=== PATIENT | female | born 1950 | race Hispanic/Latino ===

== ENCOUNTER → 2017-08-01 | Outpatient (CLI) | payer MEDICARE | END | disposition home or self-care (01) | LOC: OIH 14:18 | PROVIDERS: ATTEND Internal Medicine | DX: M16.0 Bilateral primary osteoarthritis of hip (principal); M47.26 Other spondylosis with radiculopathy, lumbar region; M85.89 Other specified disorders of bone density and structure, multiple sites; R07.81 Pleurodynia | CPT/HCPCS: 71100; 72110; 73521 ==

== ENCOUNTER → 2017-08-07 | Outpatient (CLI) | payer MEDICARE | END | disposition home or self-care (01) | LOC: RAH 13:48 | PROVIDERS: ATTEND Internal Medicine | DX: R42 Dizziness and giddiness (principal) | CPT/HCPCS: 70450 ==

== ENCOUNTER → 2017-08-24 | Outpatient (CLI) | payer MEDICARE | END | disposition home or self-care (01) | LOC: SHCH 14:32 | PROVIDERS: ATTEND Internal Medicine Cardiovascular Disease | DX: I34.0 Nonrheumatic mitral (valve) insufficiency (principal); I10 Essential (primary) hypertension; I25.5 Ischemic cardiomyopathy; I31.3 Pericardial effusion (noninflammatory); Z95.0 Presence of cardiac pacemaker | CPT/HCPCS: 93306 ==

== ENCOUNTER → 2017-08-31 | Outpatient (CLI) | payer MEDICARE | END | disposition home or self-care (01) | LOC: RAH 09:25 | PROVIDERS: ATTEND Internal Medicine | DX: N27.1 Small kidney, bilateral (principal); R16.1 Splenomegaly, not elsewhere classified | CPT/HCPCS: 76700 ==

== ENCOUNTER → 2018-01-09 | Outpatient (CLI) | payer MEDICARE | END | disposition home or self-care (01) | LOC: RAH 13:54 | PROVIDERS: ATTEND Anesthesiology | DX: M85.88 Other specified disorders of bone density and structure, other site (principal); M43.26 Fusion of spine, lumbar region; I70.0 Atherosclerosis of aorta; M47.897 Other spondylosis, lumbosacral region | CPT/HCPCS: 72100; 72131 ==

== ENCOUNTER 2018-01-31 12:35 | Inpatient (IN) | payer MEDICARE ==
[~2018-01-31] VITALS: Ht 154.9 cm; Wt 53.9 kg
[2018-01-31] MEDS ORDERED: SODIUM CHLORIDE 0.9% 1000ML 1,000 ML IV ONE (13:52)
[2018-01-31] MEDS ORDERED: ONDANSETRON HCL 4 MG/2 ML VIAL ONE (13:52)
[2018-01-31] MEDS ORDERED: MORPHINE SULFATE 4 MG/1ML SYG ONE (13:53)
[2018-01-31] MEDS ORDERED: CEFTRIAXONE SODIUM 1 GM ONE (13:53)
[2018-01-31] MEDS ORDERED: ACETAMINOPHEN 325 MG TAB ONE (13:53)
[2018-01-31 14:02] LABS: BASOPHILS % (AUTO) 0.2 % (0.0-5.0); EOSINOPHILS % (AUTO) 0.7 % (0.0-8.0); HEMATOCRIT 40.6 % (36-48); LYMPHOCYTES % (AUTO) 4.1 % (21.0-51.0); MEAN CORPUSCULAR HEMOGLOBIN 28.4 pg (27.0-33.0); MEAN CORPUSCULAR HGB CONC 32.6 g/dL (32.0-36.0); MEAN CORPUSCULAR VOLUME 87.3 fL (79-99); MONOCYTES % (AUTO) 3.7 % (3.0-13.0); NEUTROPHILS % (AUTO) 91.3 % (40.0-77.0); PLATELET COUNT (AUTO) 119 K/uL (130-400); RED BLOOD CELL COUNT(AUTO) 4.65 MIL/uL (4.00-5.50); RED CELL DISTRIBUTION WIDTH 16.8 % (11.0-15.5); WHITE BLOOD COUNT (AUTO) 9.8 K/uL (4.8-10.8)
[2018-01-31 14:09] LABS: CREATININE 4.8 mg/dL (0.5-1.5); POTASSIUM 4.3 mmol/L (3.5-5.1)
[2018-01-31 14:14] LABS: ALBUMIN 3.8 g/dL (3.5-5.0); BILIRUBIN,TOTAL 1.1 mg/dL (0.2-1.0); TOTAL PROTEIN, SERUM 8.8 g/dL (6.0-8.3)
[2018-01-31] MEDS ORDERED: IOHEXOL-350 75 ML VIAL IV ONE (14:25)
[2018-01-31] MEDS ORDERED: SODIUM CHLORIDE 0.9% 50 ML IV ONE (14:41)
[2018-01-31] MEDS ORDERED: ZOSYN 3.375GM+NS 50ML 50 ML IV ONE (14:41)
[2018-01-31] MEDS ORDERED: ACETAMINOPHEN EXTRA STRENGTH 500 MG TABLET ONE (16:52)
[2018-01-31 23:40] VITALS: BP 105/53
[2018-02-01] MEDS ORDERED: CALC667T5 PO (00:16)
[2018-02-01] MEDS ORDERED: CARV25TA PO (00:16)
[2018-02-01] MEDS ORDERED: DARU1TAB PO (00:16)
[2018-02-01] MEDS ORDERED: FOLI0.8T22 PO (00:16)
[2018-02-01] MEDS ORDERED: HYDR-4064 PO (00:16)
[2018-02-01] MEDS ORDERED: GABA-529 PO (00:16)
[2018-02-01] MEDS ORDERED: ASPI-555 PO (00:16)
[2018-02-01] MEDS ORDERED: AMLO10TA6 PO (00:16)
[2018-02-01] MEDS ORDERED: DOLU50TA PO (00:16)
[2018-02-01] MEDS ORDERED: ATOR-2 PO (00:16)
[2018-02-01] MEDS ORDERED: DULO60CA63 PO (00:16)
[2018-02-01] MEDS ORDERED: HYDROCODONE/ACETAMINOPHEN 7.5/325 MG TAB PO PRN (01:45)
[2018-02-01] MEDS ORDERED: LEVOFLOXACIN 500 MG/D5W 100 ML 200 ML ONE (02:49)
[2018-02-01 04:40] VITALS: BP 110/55
[2018-02-01 05:53] LABS: BASOPHILS % (AUTO) 0.6 % (0.0-5.0); EOSINOPHILS % (AUTO) 0.3 % (0.0-8.0); HEMATOCRIT 32.2 % (36-48); LYMPHOCYTES % (AUTO) 8.1 % (21.0-51.0); MEAN CORPUSCULAR HEMOGLOBIN 29.1 pg (27.0-33.0); MEAN CORPUSCULAR HGB CONC 33.1 g/dL (32.0-36.0); MEAN CORPUSCULAR VOLUME 87.8 fL (79-99); MONOCYTES % (AUTO) 3.8 % (3.0-13.0); NEUTROPHILS % (AUTO) 87.2 % (40.0-77.0); PLATELET COUNT (AUTO) 97 K/uL (130-400); RED BLOOD CELL COUNT(AUTO) 3.66 MIL/uL (4.00-5.50); RED CELL DISTRIBUTION WIDTH 17.4 % (11.0-15.5); WHITE BLOOD COUNT (AUTO) 10.1 K/uL (4.8-10.8)
[2018-02-01 06:01] LABS: CREATININE 6.2 mg/dL (0.5-1.5); POTASSIUM 4.6 mmol/L (3.5-5.1)
[2018-02-01 06:07] LABS: ALBUMIN 2.7 g/dL (3.5-5.0); BILIRUBIN,TOTAL 0.7 mg/dL (0.2-1.0); TOTAL PROTEIN, SERUM 6.7 g/dL (6.0-8.3)
[2018-02-01] MEDS ORDERED: PHARMACY COMMUNICATION MISC PRN (06:15)
[2018-02-01] MEDS ORDERED: DICYCLOMINE HCL 10 MG/5 ML ML PO PRN (06:15)
[2018-02-01 07:48] VITALS: BP 111/49
[2018-02-01 08:18] LABS: MAGNESIUM 1.8 mg/dL (1.80-2.40); PHOSPHORUS 3.1 mg/dL (2.5-4.9)
[2018-02-01] MEDS: GABAPENTIN 100 MG CAPSULE PO SCH ×2 (08:41→21:23)
[2018-02-01] MEDS: ASPIRIN 81 MG EC TAB PO SCH (08:41)
[2018-02-01] MEDS: CALCIUM ACETATE 667 MG CAPSULE PO SCH ×3 (08:41→17:17)
[2018-02-01] MEDS: TIVICAY 50 MG PO SCH (08:43)
[2018-02-01] MEDS: PREZCOBIX PO SCH (08:43)
[2018-02-01] MEDS ORDERED: VITAMIN B COMPLEX 1 CAPSULE PO SCH (09:00)
[2018-02-01] MEDS: CARVEDILOL 25 MG TABLET PO SCH ×2 (09:00→21:22)
[2018-02-01] MEDS: AMLODIPINE BESYLATE 5 MG TAB PO SCH (09:00)
[2018-02-01 09:51] LABS: APPEARANCE,URINE TURBID (CLEAR); BILIRUBIN,URINE SMALL (NEGATIVE); COLOR,URINE BROWN (YELLOW); GLUCOSE, URINE (UA) NEGATIVE (NEGATIVE); KETONES,URINE 5 mg/dL (NEGATIVE); LEUKOCYTE ESTERASE ,URINE MODERATE (NEGATIVE); NITRATE,URINE NEGATIVE (NEGATIVE); OCCULT BLOOD,URINE MODERATE (NEGATIVE); PH,URINE 7.5 (5.0-8.0); PROTEIN,URINE >=300 (NEGATIVE); UROBILINOGEN,URINE 0.2 mg/dL (0.2-1.0)
[2018-02-01 09:54] LABS: BACTERIA,URINE Many /HPF (None Seen); RBC,URINE 26-50 /HPF (0-1); SQUAMOUS EPITHELIAL CELL,UR 0-2 /HPF (0-2); WBC,URINE TNTC /HPF (0-1)
[2018-02-01] MEDS ORDERED: 0.9% SODIUM CHLORIDE 250 ML IV BAG IV PRN (10:15)
[2018-02-01] MEDS ORDERED: SODIUM CHLORIDE 0.9% 1000ML 1,000 ML IV PRN (10:15)
[2018-02-01] MEDS ORDERED: ALBUMIN (HUMAN) 25% 100 ML IV PRN (10:15)
[2018-02-01 11:16] VITALS: BP 119/57
[2018-02-01] MEDS ORDERED: LEVOFLOXACIN 500 MG/D5W 100 ML 100 ML IV SCH (11:30)
[2018-02-01] MEDS ORDERED: ONDANSETRON HCL MDV 20ML 2 MG/ML VIAL IVP PRN (16:30)
[2018-02-01 16:32] VITALS: BP 127/52
[2018-02-01 20:08] VITALS: BP 125/54
[2018-02-01] MEDS: DULOXETINE HCL 30 MG CAP PO SCH (21:22)
[2018-02-01] MEDS: ATORVASTATIN CALCIUM 40 MG TABLET PO SCH (21:23)
[2018-02-01] MEDS: INSULIN HUMULIN R 100 UNIT/ML 3ML SQ SCH (21:42)
[2018-02-02 00:08] VITALS: BP 105/48
[2018-02-02 04:08] VITALS: BP 102/47
[2018-02-02 04:13] LABS: BASOPHILS % (AUTO) 0.4 % (0.0-5.0); EOSINOPHILS % (AUTO) 2.4 % (0.0-8.0); HEMATOCRIT 34.2 % (36-48); LYMPHOCYTES % (AUTO) 27.4 % (21.0-51.0); MEAN CORPUSCULAR HEMOGLOBIN 28.4 pg (27.0-33.0); MEAN CORPUSCULAR HGB CONC 32.5 g/dL (32.0-36.0); MEAN CORPUSCULAR VOLUME 87.3 fL (79-99); MONOCYTES % (AUTO) 11.4 % (3.0-13.0); NEUTROPHILS % (AUTO) 58.4 % (40.0-77.0); NUCLEATED RED BLOOD CELLS 0.1 % (0.0-0.19); PLATELET COUNT (AUTO) 88 K/uL (130-400); RED BLOOD CELL COUNT(AUTO) 3.92 MIL/uL (4.00-5.50); RED CELL DISTRIBUTION WIDTH 17.2 % (11.0-15.5); WHITE BLOOD COUNT (AUTO) 6.6 K/uL (4.8-10.8)
[2018-02-02 04:39] LABS: CREATININE 4.5 mg/dL (0.5-1.5); HEMOGLOBIN A1C 7.6 % (4.0-6.0); PHOSPHORUS 3.6 mg/dL (2.5-4.9); POTASSIUM 3.9 mmol/L (3.5-5.1); THYROID STIMULATING HORMONE 2.24 uIU/mL (0.36-3.74); URIC ACID 2.2 mg/dL (2.6-7.2)
[2018-02-02] MEDS: INSULIN HUMULIN R 100 UNIT/ML 3ML SQ SCH ×4 (05:55→22:08)
[2018-02-02] MEDS: CALCIUM ACETATE 667 MG CAPSULE PO SCH ×3 (06:04→17:36)
[2018-02-02 07:46] VITALS: BP 98/50
[2018-02-02] MEDS: GABAPENTIN 100 MG CAPSULE PO SCH ×2 (08:53→19:48)
[2018-02-02] MEDS: ASPIRIN 81 MG EC TAB PO SCH (08:53)
[2018-02-02] MEDS: FOLIC ACID/VITAMIN B COMP W-C 1 MG CAPSULE PO SCH (08:53)
[2018-02-02] MEDS: AMLODIPINE BESYLATE 5 MG TAB PO SCH (08:53)
[2018-02-02] MEDS: PREZCOBIX PO SCH (08:54)
[2018-02-02] MEDS: TIVICAY 50 MG PO SCH (08:54)
[2018-02-02] MEDS: CARVEDILOL 25 MG TABLET PO SCH (08:54)
[2018-02-02] MEDS: ACETAMINOPHEN 325 MG TAB PO PRN (09:59)
[2018-02-02 11:19] VITALS: BP 102/49
[2018-02-02 16:26] VITALS: BP 98/43
[2018-02-02] MEDS ORDERED: PHARMACY COMMUNICATION MISC SCH (18:00)
[2018-02-02] MEDS ORDERED: COMPOUND PO MISCELLANEOUS 1 EACH MISC MISC PRN (18:15)
[2018-02-02 19:30] VITALS: BP 109/47
[2018-02-02] MEDS: ATORVASTATIN CALCIUM 40 MG TABLET PO SCH (19:48)
[2018-02-02] MEDS: DULOXETINE HCL 30 MG CAP PO SCH (19:48)
[2018-02-02] MEDS: VANCOMYCIN 250MG/5ML ORAL SOLUTION 40ML PO SCH ×2 (19:54)
[2018-02-03] VITALS (8 sets, daily range): BP systolic 104–148; BP diastolic 49–84
[2018-02-03] MEDS: VANCOMYCIN 250MG/5ML ORAL SOLUTION 40ML PO SCH ×10 (00:55→23:32)
[2018-02-03] MEDS ORDERED: LEVOFLOXACIN 500 MG/D5W 100 ML 100 ML IV SCH (03:00)
[2018-02-03 04:36] LABS: MEAN CORPUSCULAR HEMOGLOBIN 29.4 pg (27.0-33.0); MEAN CORPUSCULAR HGB CONC 33.5 g/dL (32.0-36.0); MEAN CORPUSCULAR VOLUME 87.9 fL (79-99); PLATELET COUNT (AUTO) 96 K/uL (130-400); RED BLOOD CELL COUNT(AUTO) 3.75 MIL/uL (4.00-5.50); WHITE BLOOD COUNT (AUTO) 6.2 K/uL (4.8-10.8)
[2018-02-03 04:39] LABS: CREATININE 6.6 mg/dL (0.5-1.5); POTASSIUM 3.5 mmol/L (3.5-5.1)
[2018-02-03 05:38] LABS: BAND NEUTROPHILS % (MANUAL) 3 % (0-2); BASOPHILS % (MANUAL) 1 % (0-2); EOSINOPHILS % (MANUAL) 1 % (1-6); LYMPHOCYTES % (MANUAL) 18 % (22-44); MAN.DIFF COMMENT-IMPRESSION MANUAL DIFFERENTIAL; MONOCYTES % (MANUAL) 3 % (2-9); SEGMENTED NEUTROPHILS % 74 % (40-70)
[2018-02-03 05:40] LABS: PLATELET MORPHOLOGY COMMENT SLIGHTLY DECREASED
[2018-02-03] MEDS: INSULIN HUMULIN R 100 UNIT/ML 3ML SQ SCH ×4 (06:02→20:18)
[2018-02-03] MEDS: CALCIUM ACETATE 667 MG CAPSULE PO SCH ×3 (06:10→16:21)
[2018-02-03] MEDS: FOLIC ACID/VITAMIN B COMP W-C 1 MG CAPSULE PO SCH (08:32)
[2018-02-03] MEDS: GABAPENTIN 100 MG CAPSULE PO SCH ×2 (08:32→20:07)
[2018-02-03] MEDS: ASPIRIN 81 MG EC TAB PO SCH (08:32)
[2018-02-03] MEDS: DEXTROSE 5 %-0.45 % NACL 1,000 ML IV SCH ×2 (08:38→21:30)
[2018-02-03] MEDS: TIVICAY 50 MG PO SCH (08:38)
[2018-02-03] MEDS: PREZCOBIX PO SCH (08:38)
[2018-02-03] MEDS: DULOXETINE HCL 30 MG CAP PO SCH (20:07)
[2018-02-03] MEDS: ATORVASTATIN CALCIUM 40 MG TABLET PO SCH (20:07)
[2018-02-04 03:20] VITALS: BP 109/35
[2018-02-04 04:49] LABS: HEMATOCRIT 32.7 % (36-48); MEAN CORPUSCULAR HEMOGLOBIN 28.2 pg (27.0-33.0); MEAN CORPUSCULAR HGB CONC 32.4 g/dL (32.0-36.0); MEAN CORPUSCULAR VOLUME 87.1 fL (79-99); PLATELET COUNT (AUTO) 82 K/uL (130-400); RED BLOOD CELL COUNT(AUTO) 3.75 MIL/uL (4.00-5.50); RED CELL DISTRIBUTION WIDTH 16.7 % (11.0-15.5); WHITE BLOOD COUNT (AUTO) 6.1 K/uL (4.8-10.8)
[2018-02-04 04:57] LABS: ALBUMIN 2.8 g/dL (3.5-5.0); BILIRUBIN,TOTAL 0.5 mg/dL (0.2-1.0); POTASSIUM 3.7 mmol/L (3.5-5.1); TOTAL PROTEIN, SERUM 6.7 g/dL (6.0-8.3)
[2018-02-04 05:00] LABS: CREATININE 8.4 mg/dL (0.5-1.5)
[2018-02-04] MEDS: VANCOMYCIN 250MG/5ML ORAL SOLUTION 40ML PO SCH ×4 (05:20→11:49)
[2018-02-04] MEDS: INSULIN HUMULIN R 100 UNIT/ML 3ML SQ SCH ×3 (05:40→16:29)
[2018-02-04] MEDS: CALCIUM ACETATE 667 MG CAPSULE PO SCH ×3 (07:30→17:20)
[2018-02-04 08:03] VITALS: BP 94/44
[2018-02-04] MEDS: FOLIC ACID/VITAMIN B COMP W-C 1 MG CAPSULE PO SCH (08:41)
[2018-02-04] MEDS: GABAPENTIN 100 MG CAPSULE PO SCH (08:42)
[2018-02-04] MEDS: TIVICAY 50 MG PO SCH (08:42)
[2018-02-04] MEDS: PREZCOBIX PO SCH (08:42)
[2018-02-04] MEDS: ASPIRIN 81 MG EC TAB PO SCH (08:42)
[2018-02-04] MEDS: ACETAMINOPHEN 325 MG TAB PO PRN (08:51)
[2018-02-04 09:33] VITALS: BP 146/59
[2018-02-04 11:10] VITALS: BP 128/60
[2018-02-04] MEDS: DEXTROSE 5 %-0.45 % NACL 1,000 ML IV SCH (11:49)
[2018-02-04] MEDS ORDERED: CEPHALEXIN 500 MG CAPSULE PO SCH (13:30)
[2018-02-04] MEDS ORDERED: EPOETIN ALFA 4000 UNIT/ML SQ SCH (14:15)
[2018-02-04 16:20] VITALS: BP 132/49
== END 2018-02-04 18:20 | disposition home or self-care (01) | DRG 871 ==
LOC: EDH 12:35 → OBSVTOIN 17:20 → EDHIP 17:20 → 4BH 23:40
PROVIDERS: ADMIT Internal Medicine; ATTEND Internal Medicine
PROC: 5A1D70Z Performance of Urinary Filtration, Intermittent, Less than 6 Hours Per Day (ICD-10-PCS; principal; 2018-02-01)
DX: A41.9 Sepsis, unspecified organism (principal); N18.6 End stage renal disease; N39.0 Urinary tract infection, site not specified; K86.1 Other chronic pancreatitis; A09 Infectious gastroenteritis and colitis, unspecified; D61.818 Other pancytopenia; E87.2 Acidosis; K57.92 Diverticulitis of intestine, part unspecified, without perforation or abscess without bleeding; I12.0 Hypertensive chronic kidney disease with stage 5 chronic kidney disease or end stage renal disease; E11.22 Type 2 diabetes mellitus with diabetic chronic kidney disease; D69.6 Thrombocytopenia, unspecified; B34.9 Viral infection, unspecified; E11.65 Type 2 diabetes mellitus with hyperglycemia; E78.5 Hyperlipidemia, unspecified; E86.0 Dehydration; F32.9 Major depressive disorder, single episode, unspecified; I25.10 Atherosclerotic heart disease of native coronary artery without angina pectoris; I25.5 Ischemic cardiomyopathy; K29.70 Gastritis, unspecified, without bleeding; M15.9 Polyosteoarthritis, unspecified; Z21 Asymptomatic human immunodeficiency virus [HIV] infection status; Z99.2 Dependence on renal dialysis; Z86.19 Personal history of other infectious and parasitic diseases; Z95.0 Presence of cardiac pacemaker; Z95.1 Presence of aortocoronary bypass graft; Z99.3 Dependence on wheelchair
CPT/HCPCS: 36415; 71045; 74176; 80048; 80053; 81001; 82550; 82948; 83036; 83605; 83690; 83735; 84100; 84443; 84484; 84550; 85025; 85027; 87040; 87077; 87088; 87186; 87507; 87804; 90935; 93005; 97039; 99291; A6250; J0696; J0882; J1815; J1956; J2270; J2405; J2543; J3370; J7030; J7042; Q9967

== ENCOUNTER 2018-03-12 10:23 | Observation (INO) | payer MEDICARE ==
[~2018-03-12] VITALS: Ht 154.9 cm; Wt 57.6 kg
[~2018-03-12 10:23] MED LIST: AMLO10TA6 PO; ASPI-555 PO; ATOR-2 PO; CALC667T5 PO; CARV25TA PO; DARU1TAB PO; DOLU50TA PO; DULO60CA63 PO; FOLI0.8T22 PO; GABA-529 PO; HYDR-4064 PO
[2018-03-12] MEDS ORDERED: SODIUM CHLORIDE 0.9% 1000ML 2,000 ML IV ONE (10:41)
[2018-03-12 10:43] LABS: BASOPHILS % (AUTO) 0.8 % (0.0-5.0); EOSINOPHILS % (AUTO) 0.1 % (0.0-8.0); HEMATOCRIT 32.2 % (36-48); LYMPHOCYTES % (AUTO) 3.7 % (21.0-51.0); MEAN CORPUSCULAR HEMOGLOBIN 30.5 pg (27.0-33.0); MEAN CORPUSCULAR HGB CONC 32.1 g/dL (32.0-36.0); MONOCYTES % (AUTO) 5.5 % (3.0-13.0); NEUTROPHILS % (AUTO) 89.9 % (40.0-77.0); PLATELET COUNT (AUTO) 108 K/uL (130-400); RED BLOOD CELL COUNT(AUTO) 3.39 MIL/uL (4.00-5.50); RED CELL DISTRIBUTION WIDTH 18.9 % (11.0-15.5); WHITE BLOOD COUNT (AUTO) 7.6 K/uL (4.8-10.8)
[2018-03-12 10:50] LABS: HEMOGLOBIN A1C 9.2 % (4.0-6.0)
[2018-03-12] MEDS ORDERED: INSULIN HUMULIN R 100 UNIT/ML 3ML ONE ×4 (10:50→16:29)
[2018-03-12 10:52] LABS: CREATININE 5.5 mg/dL (0.5-1.5); POTASSIUM 4.3 mmol/L (3.5-5.1)
[2018-03-12 10:55] LABS: BILIRUBIN,TOTAL 0.7 mg/dL (0.2-1.0); TOTAL PROTEIN, SERUM 6.9 g/dL (6.0-8.3)
[2018-03-12] MEDS ORDERED: SODIUM CHLORIDE 0.9% 100 ML IV ONE (11:30)
[2018-03-12] MEDS ORDERED: DEXTROSE 50%-WATER 50 ML DISP.SYRIN IV PRN (13:45)
[2018-03-12] MEDS ORDERED: 1/2 NORMAL SALINE 1,000 ML IV SCH (13:45)
[2018-03-12] MEDS ORDERED: GLUCAGON 1MG KIT 1 MG ML IM PRN (13:45)
[2018-03-12] MEDS ORDERED: ONDANSETRON HCL 4 MG/2 ML VIAL IVP PRN (13:45)
[2018-03-12 16:21] LABS: APPEARANCE,URINE Turbid (CLEAR); BILIRUBIN,URINE Negative (NEGATIVE); COLOR,URINE Yellow (YELLOW); GLUCOSE, URINE (UA) 500 mg/dL (NEGATIVE); KETONES,URINE Negative (NEGATIVE); LEUKOCYTE ESTERASE ,URINE Large (NEGATIVE); NITRATE,URINE Negative (NEGATIVE); OCCULT BLOOD,URINE Moderate (NEGATIVE); PH,URINE 6.5 (5.0-8.0); PROTEIN,URINE 300 (NEGATIVE); UROBILINOGEN,URINE 0.2 mg/dL (0.2-1.0)
[2018-03-12 16:40] LABS: RBC,URINE None Seen /HPF (0-1); WBC,URINE Full Field /HPF (0-1)
[2018-03-12 16:41] LABS: BACTERIA,URINE Many /HPF (None Seen)
[2018-03-12] MEDS: INSULIN R PO SS1 SQ SCH ×2 (21:00→21:58)
[2018-03-12] MEDS ORDERED: CEFTRIAXONE SODIUM 1 GM ONE (21:14)
[2018-03-12 21:55] VITALS: BP 132/54
[2018-03-12] MEDS ORDERED: ALPR0.5T PO (22:10)
[2018-03-12] MEDS ORDERED: HYDROCODONE/ACETAMINOPHEN 7.5/325 MG TAB PO PRN (22:15)
[2018-03-12 23:00] VITALS: BP 128/57
[2018-03-12] MEDS ORDERED: HYDROCODONE/ACETAMINOPHEN 7.5/325 MG TAB ONE (23:34)
[2018-03-13 03:59] VITALS: BP 128/48
[2018-03-13 05:00] LABS: HEMATOCRIT 28.9 % (36-48); MEAN CORPUSCULAR HEMOGLOBIN 29.7 pg (27.0-33.0); MEAN CORPUSCULAR HGB CONC 33.1 g/dL (32.0-36.0); MEAN CORPUSCULAR VOLUME 89.8 fL (79-99); PLATELET COUNT (AUTO) 90 K/uL (130-400); RED BLOOD CELL COUNT(AUTO) 3.22 MIL/uL (4.00-5.50); RED CELL DISTRIBUTION WIDTH 18.2 % (11.0-15.5); WHITE BLOOD COUNT (AUTO) 9.4 K/uL (4.8-10.8)
[2018-03-13 05:16] LABS: CREATININE 6.4 mg/dL (0.5-1.5); MAGNESIUM 1.8 mg/dL (1.80-2.40); PHOSPHORUS 4.2 mg/dL (2.5-4.9); POTASSIUM 4.1 mmol/L (3.5-5.1); URIC ACID 4.6 mg/dL (2.6-7.2)
[2018-03-13] MEDS: INSULIN R PO SS1 SQ SCH (06:08)
[2018-03-13] MEDS ORDERED: CALCIUM ACETATE 667 MG CAPSULE PO SCH ×2 (07:30→08:00)
[2018-03-13 08:00] VITALS: BP 138/60
[2018-03-13 08:34] VITALS: BP 138/60
[2018-03-13] MEDS ORDERED: AMLODIPINE BESYLATE 5 MG TAB PO SCH (09:00)
[2018-03-13] MEDS ORDERED: FOLIC ACID/VITAMIN B COMP W-C 1 MG CAPSULE PO SCH ×2 (09:00)
[2018-03-13] MEDS ORDERED: GABAPENTIN 100 MG CAPSULE PO SCH (09:00)
[2018-03-13] MEDS ORDERED: CARVEDILOL 25 MG TABLET PO SCH (09:00)
[2018-03-13] MEDS ORDERED: COBICISTAT PO SCH (09:00)
[2018-03-13] MEDS ORDERED: DOLUTEGRAVIR SODIUM 50 MG PO SCH (09:00)
[2018-03-13] MEDS ORDERED: ASPIRIN 81MG TAB.CHEW PO SCH (09:00)
[2018-03-13] MEDS ORDERED: INSULIN GLARGINE 100 UNITS/ML 10 ML VIAL SQ SCH (09:00)
[2018-03-13] MEDS ORDERED: DARUNAVIR PO SCH (09:00)
[2018-03-13] MEDS ORDERED: CEFTRIAXONE SODIUM 1 GM IVP SCH (21:00)
[2018-03-13] MEDS ORDERED: ATORVASTATIN CALCIUM 40 MG TABLET PO SCH (21:00)
[2018-03-13] MEDS ORDERED: ALPRAZOLAM 0.25 MG TABLET PO SCH (21:00)
== END 2018-03-13 10:13 | disposition home or self-care (01) ==
LOC: EDH 10:23 → EDHIP 11:40 → 3CH 20:58
PROVIDERS: ADMIT Internal Medicine; ATTEND Internal Medicine
DX: E11.65 Type 2 diabetes mellitus with hyperglycemia (principal); I12.0 Hypertensive chronic kidney disease with stage 5 chronic kidney disease or end stage renal disease; N18.6 End stage renal disease; Z99.2 Dependence on renal dialysis; E11.51 Type 2 diabetes mellitus with diabetic peripheral angiopathy without gangrene; E11.22 Type 2 diabetes mellitus with diabetic chronic kidney disease; D64.9 Anemia, unspecified; Z86.19 Personal history of other infectious and parasitic diseases; Z91.11 Patient's noncompliance with dietary regimen; Z91.19 Patient's noncompliance with other medical treatment and regimen; F32.9 Major depressive disorder, single episode, unspecified
CPT/HCPCS: 36415 ×2; 71045; 80048; 80053; 81001; 82009; 82948 ×7; 83036; 83735; 84100; 84550; 85025; 85027; 87040 ×2; 87088; 93005; 96372; 99291; G0378 ×23; J0696; J1815 ×4; J7030

== ENCOUNTER 2018-03-15 15:35 | Observation (INO) | payer MEDICARE ==
[~2018-03-15] VITALS: Ht 154.9 cm; Wt 57.5 kg
[~2018-03-15 15:35] MED LIST changes: +ALPR0.5T PO; -DULO60CA63 PO
[2018-03-15] MEDS ORDERED: COMPOUND PO MISCELLANEOUS 1 EACH MISC MISC PRN (16:30)
[2018-03-15] MEDS ORDERED: ONDANSETRON HCL 4 MG/2 ML VIAL IVP PRN (16:30)
[2018-03-15] MEDS ORDERED: 1/2 NORMAL SALINE 1,000 ML IV SCH (16:30)
[2018-03-15 16:31] LABS: BASOPHILS % (AUTO) 0.4 % (0.0-5.0); EOSINOPHILS % (AUTO) 1.1 % (0.0-8.0); HEMATOCRIT 30.9 % (36-48); LYMPHOCYTES % (AUTO) 8.6 % (21.0-51.0); MEAN CORPUSCULAR HGB CONC 31.7 g/dL (32.0-36.0); MEAN CORPUSCULAR VOLUME 91.3 fL (79-99); NEUTROPHILS % (AUTO) 82.9 % (40.0-77.0); PLATELET COUNT (AUTO) 97 K/uL (130-400); RED BLOOD CELL COUNT(AUTO) 3.38 MIL/uL (4.00-5.50); WHITE BLOOD COUNT (AUTO) 12.8 K/uL (4.8-10.8)
[2018-03-15 16:45] LABS: ALBUMIN 2.9 g/dL (3.5-5.0); BILIRUBIN,TOTAL 0.5 mg/dL (0.2-1.0); CREATININE 6.9 mg/dL (0.5-1.5); POTASSIUM 4.1 mmol/L (3.5-5.1)
[2018-03-15] MEDS: VANCOMYCIN HCL 250MG=5ML PO SCH ×4 (17:00→21:00)
[2018-03-15] MEDS ORDERED: INSULIN HUMULIN R 100 UNIT/ML 3ML ONE (17:54)
[2018-03-15 20:44] VITALS: BP 125/47
[2018-03-15 20:55] VITALS: BP 178/104
[2018-03-15] MEDS ORDERED: GLUCAGON 1MG KIT 1 MG ML IM PRN (21:30)
[2018-03-15] MEDS ORDERED: DEXTROSE 50%-WATER 50 ML DISP.SYRIN IV PRN (21:30)
[2018-03-15 23:00] VITALS: BP 111/49
[2018-03-15] MEDS ORDERED: INSLAN SQ (23:43)
[2018-03-15] MEDS ORDERED: ACETAMINOPHEN 325 MG TAB PO PRN (23:45)
[2018-03-15] MEDS ORDERED: trintellix PO (23:47)
[2018-03-16 03:00] VITALS: BP 114/46
[2018-03-16 05:18] LABS: HEMATOCRIT 28.2 % (36-48); MEAN CORPUSCULAR HEMOGLOBIN 30.9 pg (27.0-33.0); MEAN CORPUSCULAR HGB CONC 34.2 g/dL (32.0-36.0); MEAN CORPUSCULAR VOLUME 90.4 fL (79-99); NUCLEATED RED BLOOD CELLS 0.1 % (0.0-0.19); PLATELET COUNT (AUTO) 105 K/uL (130-400); RED BLOOD CELL COUNT(AUTO) 3.12 MIL/uL (4.00-5.50); RED CELL DISTRIBUTION WIDTH 18.6 % (11.0-15.5); WHITE BLOOD COUNT (AUTO) 9.1 K/uL (4.8-10.8)
[2018-03-16 05:31] LABS: ALBUMIN 2.5 g/dL (3.5-5.0); BILIRUBIN,TOTAL 0.5 mg/dL (0.2-1.0); CREATININE 7.5 mg/dL (0.5-1.5); POTASSIUM 4.4 mmol/L (3.5-5.1); TOTAL PROTEIN, SERUM 6.2 g/dL (6.0-8.3)
[2018-03-16] MEDS: INSULIN R PO SS1 SQ SCH ×2 (06:00→11:30)
[2018-03-16 08:00] VITALS: BP 129/59
[2018-03-16] MEDS: VANCOMYCIN HCL 250MG=5ML PO SCH ×4 (09:00→12:11)
[2018-03-16 12:00] VITALS: BP 133/53
== END 2018-03-16 13:40 | disposition home or self-care (01) ==
LOC: EDH 15:35 → EDHIP 17:29 → 3BH 19:56
PROVIDERS: ADMIT Internal Medicine; ATTEND Internal Medicine
DX: E11.65 Type 2 diabetes mellitus with hyperglycemia (principal); G93.41 Metabolic encephalopathy; D64.9 Anemia, unspecified; I12.0 Hypertensive chronic kidney disease with stage 5 chronic kidney disease or end stage renal disease; N18.6 End stage renal disease; E11.22 Type 2 diabetes mellitus with diabetic chronic kidney disease; G89.29 Other chronic pain; M54.5 Low back pain; K74.60 Unspecified cirrhosis of liver; Z99.2 Dependence on renal dialysis; Z99.3 Dependence on wheelchair; Z91.19 Patient's noncompliance with other medical treatment and regimen
CPT/HCPCS: 36415 ×2; 80053 ×2; 82140 ×2; 82948 ×3; 83630; 85025; 85027; 87040 ×2; 87046; 87324; 96360; 96361; 99284; A4218 ×2; G0378 ×20; J1815; J3370 ×2

== ENCOUNTER 2019-12-19 13:32 | Inpatient (IN) | payer MEDICARE ==
[~2019-12-19] VITALS: Ht 152.4 cm; Wt 51.2 kg
[~2019-12-19 13:32] MED LIST changes: -AMLO10TA6 PO; +AMLO10TA7 PO; -ASPI-555 PO; +ASPI-556 PO; -CALC667T5 PO; +CALC667T6 PO; +INSLAN SQ; +trintellix PO
[2019-12-19 14:14] LABS: BASOPHILS % (AUTO) 0.5 % (0.0-5.0); EOSINOPHILS % (AUTO) 2.5 % (0.0-8.0); HEMATOCRIT 38.1 % (36-48); LYMPHOCYTES % (AUTO) 15.9 % (21.0-51.0); MEAN CORPUSCULAR HEMOGLOBIN 28.3 pg (27.0-33.0); MEAN CORPUSCULAR HGB CONC 31.2 g/dL (32.0-36.0); MEAN CORPUSCULAR VOLUME 90.7 fL (79-99); MONOCYTES % (AUTO) 5.4 % (3.0-13.0); NEUTROPHILS % (AUTO) 75.3 % (40.0-77.0); PLATELET COUNT (AUTO) 307 K/uL (130-400); RED CELL DISTRIBUTION WIDTH 17.3 % (11.0-15.5); WHITE BLOOD COUNT (AUTO) 8.5 K/uL (4.8-10.8)
[2019-12-19 14:30] LABS: INR 0.97 (0.85-1.15); PARTIAL THROMBOPLASTIN TIME 46.4 SEC (26.3-35.5); PROTHROMBIN TIME 10.5 SEC (9.6-11.6)
[2019-12-19 14:36] LABS: ALANINE AMINOTRANSFERASE 12 U/L (12-78); ALBUMIN 2.3 g/dL (3.5-5.0); ASPARTATE AMINOTRANSFERASE 23 U/L (10-37); BILIRUBIN,TOTAL 0.5 mg/dL (0.2-1.0); CARBON DIOXIDE 23 mmol/L (21-32); CHLORIDE 99 mmol/L (101-111); CREATINE KINASE, TOTAL 37 U/L (21-232); GLOMERULAR FILTR. RATE CALC 12 mL/min (>60); GLUCOSE,RANDOM 195 mg/dL (70-105); MYOGLOBIN 134 ng/mL (10-92); POTASSIUM 3.2 mmol/L (3.5-5.1); SODIUM SERUM 134 mmol/L (136-145); TOTAL PROTEIN, SERUM 8.6 g/dL (6.0-8.3); TROPONIN I < 0.04 ng/mL (0.00-0.06); UREA NITROGEN, BLOOD 30 mg/dL (7-18)
[2019-12-19] MEDS ORDERED: ZOSYN 3.375GM+NS 50ML 50 ML IV ONE (14:58)
[2019-12-19 15:15] LABS: APPEARANCE,URINE TURBID (CLEAR); BILIRUBIN,URINE NEGATIVE (NEGATIVE); COLOR,URINE YELLOW (YELLOW); GLUCOSE, URINE (UA) NEGATIVE (NEGATIVE); KETONES,URINE 5 mg/dL (NEGATIVE); LEUKOCYTE ESTERASE ,URINE LARGE (NEGATIVE); NITRATE,URINE NEGATIVE (NEGATIVE); OCCULT BLOOD,URINE LARGE (NEGATIVE); PH,URINE 7.5 (5.0-8.0); PROTEIN,URINE >=300 mg/dL (NEGATIVE); UROBILINOGEN,URINE 0.2 mg/dL (0.2-1.0)
[2019-12-19 15:42] LABS: BACTERIA,URINE Many /HPF (None Seen); RBC,URINE None Seen /HPF (0-1); SQUAMOUS EPITHELIAL CELL,UR None Seen /HPF (0-2); WBC,URINE TNTC /HPF (0-1)
[2019-12-19] MEDS ORDERED: ACETAMINOPHEN 325 MG TAB PO PRN (19:45)
[2019-12-19] MEDS: INSULIN R PO SS1 SQ SCH (21:00)
[2019-12-19 21:50] VITALS: BP 214/87
[2019-12-19] MEDS ORDERED: CLONIDINE HCL 0.1 MG TABLET PO PRN (22:00)
--- NOTE | 2019-12-19 22:00 | NUR ---
ADMIT PT ADMITTED TO ROOM 323, AWAKE ALERT BUT IS ONLY ORIENTED TO PERSON. PT CLAIMS OF PAINS TO EXTREMITIES WHEN BEING TOUCHED. PT'S DAUGHTER IS ALLOWED TO STAY WITH PT PT IS CALMER WITH FAMILY IN ROOM. ADMISSION CARE DONE. ADMISSION DATA BASE COMPLETED. CONSENT FOR HD SIGNED BY PT'S DAUGHTER. TELE MONITOR PLACED ON PT. HOME MEDS UPDATED AND RECONCILED MD ORDERED. ORIENTED FAMILY TO ROOM AND UNIT. IN FOR MORE CARE AND MANAGEMENT. Addendum: 12/19/19 at 2308 by HANH WISEMAN RN RN Amended: Links added.
[2019-12-19] MEDS ORDERED: FLUO10CA21 PO (22:36)
[2019-12-19] MEDS ORDERED: ERGO500014 PO (22:36)
[2019-12-19] MEDS ORDERED: CILO100T PO (22:36)
[2019-12-19] MEDS ORDERED: INSU100V37 SQ (22:36)
[2019-12-19] MEDS ORDERED: ACET-2247 PO (22:36)
[2019-12-19] MEDS ORDERED: TIZA2CAP9 PO (22:36)
[2019-12-19] MEDS ORDERED: CIPR7.5D OT (22:36)
[2019-12-20 00:11] VITALS: BP 113/48
[2019-12-20] MEDS ORDERED: PHARMACY COMMUNICATION MISC SCH (01:00)
--- NOTE | 2019-12-20 02:00 | NUR ---
ROUNDS PT RESTING WELL, FAIRLY ASLEEP WITH RESPIRATIONS EVEN AND UNLABORED. NO NOTED DISTRESS. KEPT UNDISTURBED FOR NOW. WILL MONITOR PT. CALL LIGHT WITHIN REACH.
[2019-12-20 04:35] VITALS: BP 123/52
[2019-12-20 05:15] LABS: HEMATOCRIT 27.6 % (36-48); MEAN CORPUSCULAR HEMOGLOBIN 28.9 pg (27.0-33.0); MEAN CORPUSCULAR HGB CONC 31.9 g/dL (32.0-36.0); MEAN CORPUSCULAR VOLUME 90.5 fL (79-99); RED BLOOD CELL COUNT(AUTO) 3.05 MIL/uL (4.00-5.50); RED CELL DISTRIBUTION WIDTH 17.4 % (11.0-15.5); WHITE BLOOD COUNT (AUTO) 8.8 K/uL (4.8-10.8)
--- NOTE | 2019-12-20 05:16 | NUR ---
ROUNDS PT SLEPT AT LONG INTERVALS DURING THE SHIFT. NO NOTED DISTRESS. PT'S DAUGHTER AT BEDSIDE IN ATTENDANCE TO NEEDS AT THIS TIME. FOR MORE CARE.
[2019-12-20 05:40] LABS: CREATININE 4.6 mg/dL (0.5-1.5); POTASSIUM 3.3 mmol/L (3.5-5.1)
[2019-12-20] MEDS: INSULIN R PO SS1 SQ SCH ×4 (05:42→20:03)
--- NOTE | 2019-12-20 06:00 | NUR ---
HD HD NURSE IN TO START TREATMENT.
--- NOTE | 2019-12-20 06:30 | NUR ---
MD DR FRANCISCO IN TO SEE PT. NEW MED ORDER RECEIVED. PLEASE REFER TO CPOE. FOR MORE CARE.
[2019-12-20] MEDS ORDERED: VANCOMYCIN PROTOCOL PER PHARMACY IV SCH (06:45)
[2019-12-20] MEDS ORDERED: SODIUM CHLORIDE 0.9% 1000ML 1,000 ML IV PRN (07:15)
[2019-12-20] MEDS ORDERED: 0.9% SODIUM CHLORIDE 1000 ML IV BAG IV PRN (07:15)
[2019-12-20] MEDS ORDERED: NITROGLYCERIN 0.4 MG SL TAB SL PRN (07:15)
[2019-12-20] MEDS ORDERED: LIDOCAINE HCL-MPF 1% 2ML VIAL IJ PRN (07:15)
[2019-12-20] MEDS ORDERED: ACETAMINOPHEN 325 MG TAB PO PRN (07:15)
[2019-12-20] MEDS ORDERED: COMPOUND IV REFRIGERATED 1 EACH IVSOLN MISC PRN (07:15)
[2019-12-20 08:10] VITALS: BP 122/58
[2019-12-20] MEDS ORDERED: TRESIBA 15 UNIT SQ PRN (09:00)
[2019-12-20] MEDS: CILOSTAZOL 100 MG TAB PO SCH ×2 (09:00→20:02)
[2019-12-20] MEDS: ACETAMINOPHEN 325 MG TAB PO SCH ×2 (09:00→20:03)
[2019-12-20] MEDS: PREZCOBIX PO SCH (09:00)
[2019-12-20] MEDS: CIPROFLOXACIN HCL/DEXAMETH 7.5 ML DROPS.SUSP OTIC SCH ×4 (09:00→20:13)
[2019-12-20] MEDS: TIZANIDINE HCL 2 MG TABLET PO SCH (09:00)
[2019-12-20] MEDS ORDERED: ERGOCALCIFEROL (VITAMIN D2) 50,000 UNIT CAPSULE PO SCH (09:00)
[2019-12-20] MEDS: TIVICAY 50 MG PO SCH (09:00)
[2019-12-20] MEDS: CARVEDILOL 25 MG TABLET PO SCH ×2 (09:00→20:02)
[2019-12-20] MEDS ORDERED: HEPARIN SODIUM 5000UNIT/ML 1ML VIAL ONE (09:56)
[2019-12-20] MEDS: FOLIC ACID/VITAMIN B COMP W-C 1 CAP TAB PO SCH (10:59)
[2019-12-20] MEDS: FLUOXETINE HCL 10 MG CAPSULE PO SCH (11:05)
[2019-12-20] MEDS: AMLODIPINE BESYLATE 5 MG TAB PO SCH (11:05)
[2019-12-20] MEDS: CALCIUM ACETATE 667 MG CAPSULE PO SCH ×3 (11:05→16:54)
[2019-12-20] MEDS: ASPIRIN 81 MG EC TAB PO SCH (11:05)
[2019-12-20 12:22] VITALS: BP 118/60
[2019-12-20] MEDS: VANCOMYCIN 750MG + NS 250 ML IV SCH ×2 (13:55)
[2019-12-20] MEDS: ZOSYN 3.375GM+NS 50ML 50 ML IV SCH (15:00)
[2019-12-20 17:24] VITALS: BP 131/57
[2019-12-20 20:00] VITALS: BP 125/43
[2019-12-20] MEDS: ALPRAZOLAM 0.5 MG TABLET PO SCH (20:02)
[2019-12-20] MEDS: ATORVASTATIN CALCIUM 40 MG TABLET PO SCH (20:02)
--- NOTE | 2019-12-20 20:15 | NUR ---
MEDS SHIFT ASSESSMENT DONE, PLEASE REFER TO CHART. DUE MEDS ADMINISTERED, TOLERATED WELL. CALL LIGHT WITHIN REACH. PT'S DAUGHTER AT BEDSIDE IN ATTENDANCE TO NEEDS AT THIS TIME. KEPT COMFORTABLE IN BED WITH HOB ELEVATED. CALL LIGHT WITHIN REACH. WILL MONITOR PT. Addendum: 12/20/19 at 2121 by HANH WISEMAN RN RN Amended: Links added.
--- NOTE | 2019-12-20 20:18 | NUR ---
INITIAL: Met w pt and dtr at the bedside this evening to discuss dcp. Dtr mentions that pt lives w her. Prior to admission pt was bedbound and dependent for ADLs. Pt has at home a hosp bed, wc and chair. Per dt pt attends [facility] and she provides transportation. Per dtr pt has provider services 34hr/week. Dtr feels comfortable taking pt home at ca. CM to continue to follow and wait for Md recommendations. Addendum: 12/21/19 at 2020 by SERGEY LAI CM Amended: Links added.
--- NOTE | 2019-12-20 21:40 | NUR ---
TEST CALLED LAB AND VERIFIED WITH SAMSON IF SPECIMEN WAS RECEIVED FROM ER FOR COVID PCR. SHIP CONSTRUCTION TEACHER WAS INFORMED THAT NO SPECIMEN WAS RECEIVED. COLLECTED NASAL SWAB FOR COVID PCR THEN SENT TO LAB. PT FREQUENTLY URINATES AND IS BEING ASSISTED TO THE RESTROOM EACH TIME. KEPT RESTED AND COMFORTABLE IN BED. CALL LIGHT WITHIN REACH. WILL MONITOR PT. Addendum: 12/20/19 at 2241 by HANH WISEMAN RN RN ERROR ENTRY.
--- NOTE | 2019-12-20 22:00 | NUR ---
ROUNDS PCP ASSISTED PT'S DAUGHTER TO CHANGE PT. KEPT RESTED AND COMFORTABLE IN BED. WILL CONTINUE TO MONITOR.
[2019-12-21] VITALS (7 sets, daily range): BP systolic 103–153; BP diastolic 44–74
--- NOTE | 2019-12-21 02:00 | NUR ---
ROUNDS PT SLEPT AT INTERVALS. NO DISTRESS NOTED. FAMILY ASLEEP AT BEDSIDE. WILL CONTINUE TO MONITOR.
[2019-12-21] MEDS: ZOSYN 3.375GM+NS 50ML 50 ML IV SCH ×2 (03:03→15:38)
--- NOTE | 2019-12-21 05:47 | NUR ---
ROUNDS PT CAML AND QUITE. SLEPT AT INTERVALS DURING THE SHIFT. NO DISTRESS NOTED. KEPT COMFORTABLE IN BED. FOR MORE CARE.
[2019-12-21] MEDS: INSULIN R PO SS1 SQ SCH ×4 (05:52→20:23)
[2019-12-21 05:53] LABS: BASOPHILS % (AUTO) 0.4 % (0.0-5.0); EOSINOPHILS % (AUTO) 3.1 % (0.0-8.0); HEMATOCRIT 27.4 % (36-48); LYMPHOCYTES % (AUTO) 21.5 % (21.0-51.0); MEAN CORPUSCULAR HEMOGLOBIN 28.9 pg (27.0-33.0); MEAN CORPUSCULAR HGB CONC 32.1 g/dL (32.0-36.0); MEAN CORPUSCULAR VOLUME 90.1 fL (79-99); NEUTROPHILS % (AUTO) 64.7 % (40.0-77.0); PLATELET COUNT (AUTO) 205 K/uL (130-400); RED BLOOD CELL COUNT(AUTO) 3.04 MIL/uL (4.00-5.50); RED CELL DISTRIBUTION WIDTH 17.2 % (11.0-15.5); WHITE BLOOD COUNT (AUTO) 7.5 K/uL (4.8-10.8)
[2019-12-21 06:18] LABS: CREATININE 2.8 mg/dL (0.5-1.5); PHOSPHORUS 2.3 mg/dL (2.5-4.9); POTASSIUM 3.1 mmol/L (3.5-5.1)
--- NOTE | 2019-12-21 06:30 | NUR ---
MD DR FRANCISCO IN TO SEE PT. INFORMED PT AND FAMILY THAT SHE PLANS TO DISCHARGE PT TOMORROW. NO NEW ORDERS GIVEN.
--- NOTE | 2019-12-21 08:00 | NUR ---
ASSESSMENT NOTE PT C/O FROM DAUGHTER IS DIARRHEA, BODY ACH.
[2019-12-21] MEDS: FOLIC ACID/VITAMIN B COMP W-C 1 CAP TAB PO SCH (08:12)
[2019-12-21] MEDS: CILOSTAZOL 100 MG TAB PO SCH ×2 (08:12→20:03)
[2019-12-21] MEDS: AMLODIPINE BESYLATE 5 MG TAB PO SCH (08:12)
[2019-12-21] MEDS: FLUOXETINE HCL 10 MG CAPSULE PO SCH (08:13)
[2019-12-21] MEDS: CARVEDILOL 25 MG TABLET PO SCH ×2 (08:13→20:19)
[2019-12-21] MEDS: ASPIRIN 81 MG EC TAB PO SCH (08:13)
[2019-12-21] MEDS: CALCIUM ACETATE 667 MG CAPSULE PO SCH ×3 (08:13→17:00)
[2019-12-21] MEDS: ACETAMINOPHEN 325 MG TAB PO SCH ×2 (08:14→08:41)
[2019-12-21] MEDS: CIPROFLOXACIN HCL/DEXAMETH 7.5 ML DROPS.SUSP OTIC SCH ×4 (08:36→20:27)
[2019-12-21] MEDS: TIVICAY 50 MG PO SCH (08:37)
[2019-12-21] MEDS: PREZCOBIX PO SCH (08:37)
[2019-12-21] MEDS: TIZANIDINE HCL 2 MG TABLET PO SCH (10:16)
[2019-12-21] MEDS: VANCOMYCIN 750MG + NS 250 ML IV SCH ×2 (13:54)
[2019-12-21] MEDS: ALPRAZOLAM 0.5 MG TABLET PO SCH (20:03)
[2019-12-21] MEDS: ATORVASTATIN CALCIUM 40 MG TABLET PO SCH (20:04)
[2019-12-22] VITALS (7 sets, daily range): BP systolic 106–143; BP diastolic 37–68
[2019-12-22] MEDS: ZOSYN 3.375GM+NS 50ML 50 ML IV SCH ×2 (02:50→16:46)
[2019-12-22] MEDS: INSULIN R PO SS1 SQ SCH ×4 (05:48→21:00)
--- NOTE | 2019-12-22 06:40 | NUR ---
MD CELESTINO MEYER VISITED WITH PATIENT AND DAUGHTER AT BEDSIDE. POC DISCUSSED. NO NEW ORDERS AT THIS TIME. DISCHARGE PLANNING FOR TOMORROW AT THIS TIME NO QUESTIONS OR CONCERNS VOICED. FAMILY AND PATIENT AWARE. WILL CONTINUE TO BE OBSERVED. Addendum: 12/22/19 at 0658 by CONCHIS KIRKLAND RN RN Amended: Links added.
[2019-12-22] MEDS: CALCIUM ACETATE 667 MG CAPSULE PO SCH ×3 (08:00→16:52)
[2019-12-22] MEDS: TIVICAY 50 MG PO SCH (09:00)
[2019-12-22] MEDS: CIPROFLOXACIN HCL/DEXAMETH 7.5 ML DROPS.SUSP OTIC SCH ×4 (09:00→22:57)
[2019-12-22] MEDS: ACETAMINOPHEN 325 MG TAB PO SCH ×2 (09:00→21:00)
[2019-12-22] MEDS: PREZCOBIX PO SCH (09:00)
[2019-12-22] MEDS: FOLIC ACID/VITAMIN B COMP W-C 1 CAP TAB PO SCH (13:24)
[2019-12-22] MEDS: ASPIRIN 81 MG EC TAB PO SCH (13:25)
[2019-12-22] MEDS: AMLODIPINE BESYLATE 5 MG TAB PO SCH (13:25)
[2019-12-22] MEDS: CARVEDILOL 25 MG TABLET PO SCH ×2 (13:25→22:58)
[2019-12-22] MEDS: TIZANIDINE HCL 2 MG TABLET PO SCH (13:25)
[2019-12-22] MEDS: FLUOXETINE HCL 10 MG CAPSULE PO SCH (13:30)
[2019-12-22] MEDS: CILOSTAZOL 100 MG TAB PO SCH ×2 (13:30→22:58)
--- NOTE | 2019-12-22 14:24 | NUR ---
ZAID REVIEWED, DC PLANNING IN 24 HRS TO HOME. UA+, BUT NO GROWTH FROM [facility] AT THIS TIME Addendum: 12/22/19 at 1425 by JUAN PABLO ROBERTS RN CM Amended: Links added.
[2019-12-22] MEDS: VANCOMYCIN 750MG + NS 250 ML IV SCH ×2 (14:37)
[2019-12-22] MEDS ORDERED: MAGNESIUM 2GM PREMIX 50ML 50 ML IV SCH (19:00)
[2019-12-22] MEDS ORDERED: KETOROLAC TROMETHAMINE 15MG/ML IV SCH (19:00)
[2019-12-22] MEDS ORDERED: KETOROLAC TROMETHAMINE 15MG/ML ONE (22:50)
[2019-12-22] MEDS: ATORVASTATIN CALCIUM 40 MG TABLET PO SCH (22:58)
[2019-12-22] MEDS: ALPRAZOLAM 0.5 MG TABLET PO SCH (22:59)
[2019-12-23 03:40] VITALS: BP 131/50
[2019-12-23] MEDS: ZOSYN 3.375GM+NS 50ML 50 ML IV SCH (03:45)
[2019-12-23] MEDS: INSULIN R PO SS1 SQ SCH ×2 (06:16→11:30)
[2019-12-23 07:30] VITALS: BP 134/55
[2019-12-23] MEDS: CALCIUM ACETATE 667 MG CAPSULE PO SCH ×2 (08:00→12:00)
[2019-12-23] MEDS: TIVICAY 50 MG PO SCH (09:00)
[2019-12-23] MEDS: ACETAMINOPHEN 325 MG TAB PO SCH (09:00)
[2019-12-23] MEDS: CIPROFLOXACIN HCL/DEXAMETH 7.5 ML DROPS.SUSP OTIC SCH ×2 (09:00→12:28)
[2019-12-23] MEDS: PREZCOBIX PO SCH (09:00)
[2019-12-23] MEDS: FOLIC ACID/VITAMIN B COMP W-C 1 CAP TAB PO SCH (09:28)
[2019-12-23] MEDS: CARVEDILOL 25 MG TABLET PO SCH (09:28)
[2019-12-23] MEDS: CILOSTAZOL 100 MG TAB PO SCH (09:29)
[2019-12-23] MEDS: ASPIRIN 81 MG EC TAB PO SCH (09:29)
[2019-12-23] MEDS: AMLODIPINE BESYLATE 5 MG TAB PO SCH (09:29)
[2019-12-23] MEDS: FLUOXETINE HCL 10 MG CAPSULE PO SCH (09:29)
[2019-12-23 11:00] VITALS: BP 154/59
--- NOTE | 2019-12-23 12:21 | NUR ---
RD NOTIFICATION Pt admitted with AMS, UTI. Hx HIV, ESRD, DM, HTN. Pt with Renal Dialysis, 75gm CC diet order with no report of GI distress. Fair PO intake. Monitored labs: K 3.1, Cl 100, Cr 2.8, GFR 18, Ca 8.3, P 2.3, Alb 2.3. Vit D supplementation, Nephrovite, in place.S/p hemodialysis. Recommend Nepro [address]D RD to continue to monitor.
--- NOTE | 2019-12-23 13:16 | NUR ---
DISCHARGE DISCHARGE INSTRUCTIONS GIVEN TO PATIENT AND HER DAUGHTER, BOTH VERBALIZED UNDERSTANDING. IV DISCONTINUED. TELEPAK DISCONTINUED.
[2019-12-23] MEDS ORDERED: ALPRAZOLAM 0.25 MG TABLET PO SCH (21:00)
[2019-12-24] MEDS ORDERED: DULO30CA52 PO (23:52)
== END 2019-12-23 13:30 | disposition home or self-care (01) | DRG 70 ==
LOC: EDH 13:32 → EDHIP 17:45 → 3DH 21:10
PROVIDERS: ADMIT Internal Medicine; ATTEND Internal Medicine
PROC: 5A1D70Z Performance of Urinary Filtration, Intermittent, Less than 6 Hours Per Day (ICD-10-PCS; principal; 2019-12-20)
PROC: 5A1D70Z Performance of Urinary Filtration, Intermittent, Less than 6 Hours Per Day (ICD-10-PCS; 2019-12-22)
DX: G93.41 Metabolic encephalopathy (principal); N18.6 End stage renal disease; I12.0 Hypertensive chronic kidney disease with stage 5 chronic kidney disease or end stage renal disease; I16.9 Hypertensive crisis, unspecified; N12 Tubulo-interstitial nephritis, not specified as acute or chronic; E78.5 Hyperlipidemia, unspecified; E11.42 Type 2 diabetes mellitus with diabetic polyneuropathy; E78.00 Pure hypercholesterolemia, unspecified; E11.22 Type 2 diabetes mellitus with diabetic chronic kidney disease; R53.81 Other malaise; M13.0 Polyarthritis, unspecified; Z99.2 Dependence on renal dialysis
CPT/HCPCS: 36415; 70450; 71045; 80048; 80053; 80202; 81001; 82140; 82550; 82948; 83605; 83874; 84100; 84145; 84484; 85025; 85027; 85610; 85730; 86359; 86361; 86900; 86901; 87040; 87088; 87426; 90935; 93005; G0378; J1644; J1815; J1885; J2543; J3370; J7050; U0003

== ENCOUNTER 2020-05-21 14:43 | Inpatient (IN) | payer MEDICARE ==
[~2020-05-21] VITALS: Ht 153.7 cm; Wt 42.7 kg
[~2020-05-21 14:43] MED LIST changes: +ACET-2247 PO; -ALPR0.5T PO; +AMLO-258 PO; -AMLO10TA7 PO; -CALC667T6 PO; +CILO100T PO; +CIPR7.5D OT; +DULO30CA52 PO; +ERGO500093 PO; +FLUO10CA21 PO; -GABA-529 PO; -HYDR-4064 PO; -INSLAN SQ; +INSU100V37 SQ; -trintellix PO
[2020-05-21 15:18] LABS: BASOPHILS % (AUTO) 0.7 % (0.0-5.0); EOSINOPHILS % (AUTO) 1.3 % (0.0-8.0); HEMATOCRIT 31.5 % (36-48); LYMPHOCYTES % (AUTO) 19.6 % (21.0-51.0); MEAN CORPUSCULAR HEMOGLOBIN 28.4 pg (27.0-33.0); MEAN CORPUSCULAR HGB CONC 30.2 g/dL (32.0-36.0); MEAN CORPUSCULAR VOLUME 94.3 fL (79-99); MONOCYTES % (AUTO) 9.3 % (3.0-13.0); NEUTROPHILS % (AUTO) 68.1 % (40.0-77.0); PLATELET COUNT (AUTO) 201 K/uL (130-400); RED BLOOD CELL COUNT(AUTO) 3.34 MIL/uL (4.00-5.50); RED CELL DISTRIBUTION WIDTH 18.1 % (11.0-15.5); WHITE BLOOD COUNT (AUTO) 6.9 K/uL (4.8-10.8)
[2020-05-21 15:34] LABS: CREATININE 4.9 mg/dL (0.5-1.5); POTASSIUM 3.8 mmol/L (3.5-5.1)
[2020-05-21 15:38] LABS: ALBUMIN 2.4 g/dL (3.5-5.0); BILIRUBIN,TOTAL 0.4 mg/dL (0.2-1.0); TOTAL PROTEIN, SERUM 8.2 g/dL (6.0-8.3)
[2020-05-21] MEDS ORDERED: KETOROLAC 30MG VIAL (30MG/ML) ONE (16:26)
[2020-05-21] MEDS ORDERED: ZOSYN 3.375GM+NS 50ML 50 ML IV ONE (18:10)
[2020-05-21] MEDS ORDERED: CEFTRIAXONE 1G VIAL ONE (20:34)
[2020-05-21] MEDS ORDERED: ONDANSETRON 4MG INJ ONE (20:45)
[2020-05-21] MEDS ORDERED: ACETAMINOPHEN 650 MG SUPPOSITORY RC PRN (20:45)
[2020-05-21] MEDS ORDERED: ACETAMINOPHEN 325 MG TAB PO PRN (20:45)
[2020-05-21] MEDS ORDERED: MORPHINE 2 MG SYG IVP PRN (20:45)
[2020-05-21] MEDS ORDERED: MORPHINE 2 MG SYG ONE (20:46)
[2020-05-22 04:11] LABS: BASOPHILS % (AUTO) 0.7 % (0.0-5.0); EOSINOPHILS % (AUTO) 1.5 % (0.0-8.0); HEMATOCRIT 27.3 % (36-48); LYMPHOCYTES % (AUTO) 9.3 % (21.0-51.0); MEAN CORPUSCULAR HEMOGLOBIN 27.8 pg (27.0-33.0); MEAN CORPUSCULAR VOLUME 92.5 fL (79-99); MONOCYTES % (AUTO) 7.9 % (3.0-13.0); NEUTROPHILS % (AUTO) 79.9 % (40.0-77.0); PLATELET COUNT (AUTO) 170 K/uL (130-400); RED BLOOD CELL COUNT(AUTO) 2.95 MIL/uL (4.00-5.50); RED CELL DISTRIBUTION WIDTH 18.2 % (11.0-15.5); WHITE BLOOD COUNT (AUTO) 6.9 K/uL (4.8-10.8)
[2020-05-22 04:21] LABS: ALBUMIN 2.2 g/dL (3.5-5.0); BILIRUBIN,TOTAL 0.4 mg/dL (0.2-1.0); CREATININE 5.3 mg/dL (0.5-1.5); INR 1.12 (0.85-1.15); POTASSIUM 4.5 mmol/L (3.5-5.1); PROTHROMBIN TIME 12.1 SEC (9.6-11.6); TOTAL PROTEIN, SERUM 7.4 g/dL (6.0-8.3)
[2020-05-22 04:23] LABS: PARTIAL THROMBOPLASTIN TIME 32.7 SEC (26.3-35.5)
[2020-05-22] MEDS ORDERED: ENOXAPARIN SODIUM 40 MG/0.4 ML SYRINGE SQ ONE (08:23)
[2020-05-22] MEDS ORDERED: SOLU-MEDROL 125MG VIAL ONE (08:23)
[2020-05-22 08:56] VITALS: BP 143/64
[2020-05-22 11:07] VITALS: BP 144/65
[2020-05-22] MEDS: PANTOPRAZOLE 40 MG/VIAL IVP SCH (12:08)
[2020-05-22] MEDS ORDERED: EPOETIN ALFA-EPBX (ESRD) 10,000 UNIT/ML VIAL SQ SCH (13:45)
[2020-05-22 15:30] VITALS: BP 123/64
[2020-05-22] MEDS ORDERED: GLUCAGON 1MG KIT 1 MG ML IM PRN (16:45)
[2020-05-22] MEDS ORDERED: ASPIRIN 81MG CHEW TAB PO SCH (17:00)
[2020-05-22] MEDS: DEXTROSE 50%-WATER 50 ML DISP.SYRIN IV PRN ×2 (17:14→20:23)
[2020-05-22] MEDS ORDERED: CALC667C10 PO (17:42)
[2020-05-22 19:38] VITALS: BP 136/62
[2020-05-22] MEDS: ATORVASTATIN 40 MG TABLET PO SCH (20:23)
[2020-05-22] MEDS: CEFTRIAXONE 1G VIAL IVP SCH (20:23)
[2020-05-22] MEDS: CARVEDILOL 25 MG TABLET PO SCH (20:23)
[2020-05-22 23:12] VITALS: BP 149/62
[2020-05-23] VITALS (32 sets, daily range): BP systolic 106–193; BP diastolic 49–91
[2020-05-23 05:49] LABS: BASOPHILS % (AUTO) 0.8 % (0.0-5.0); EOSINOPHILS % (AUTO) 2.2 % (0.0-8.0); HEMATOCRIT 29.8 % (36-48); LYMPHOCYTES % (AUTO) 33.4 % (21.0-51.0); MEAN CORPUSCULAR HGB CONC 30.2 g/dL (32.0-36.0); MEAN CORPUSCULAR VOLUME 92.5 fL (79-99); MONOCYTES % (AUTO) 15.2 % (3.0-13.0); NEUTROPHILS % (AUTO) 47.8 % (40.0-77.0); PLATELET COUNT (AUTO) 191 K/uL (130-400); RED BLOOD CELL COUNT(AUTO) 3.22 MIL/uL (4.00-5.50); RED CELL DISTRIBUTION WIDTH 18.5 % (11.0-15.5); WHITE BLOOD COUNT (AUTO) 6.4 K/uL (4.8-10.8)
[2020-05-23 06:28] LABS: ALBUMIN 2.3 g/dL (3.5-5.0); BILIRUBIN,TOTAL 0.4 mg/dL (0.2-1.0); CREATININE 3.7 mg/dL (0.5-1.5); PHOSPHORUS 3.3 mg/dL (2.5-4.9); POTASSIUM 3.9 mmol/L (3.5-5.1); TOTAL PROTEIN, SERUM 7.9 g/dL (6.0-8.3)
[2020-05-23] MEDS: PANTOPRAZOLE 40 MG/VIAL IVP SCH (09:00)
[2020-05-23] MEDS: CARVEDILOL 25 MG TABLET PO SCH ×2 (09:00→20:38)
[2020-05-23] MEDS: Vitamin B Complex/Vit C/Folic Acid PO SCH (09:00)
[2020-05-23] MEDS ORDERED: BUPIVACAINE/PF 0.5% 30ML VIAL ONE (10:38)
[2020-05-23] MEDS ORDERED: 0.9%NACL 1000ML 1,000 ML IV ONE (11:08)
[2020-05-23] MEDS ORDERED: KETAMINE 50MG/ML SYRINGE 50 MG/ML DISP.SYRIN IV ONE (11:24)
[2020-05-23] MEDS ORDERED: ROCURONIUM 10MG/1ML SYR 10 MG/ML ML ONE (11:27)
[2020-05-23] MEDS ORDERED: LIDOCAINE PF 100MG/5ML (2%) SYRINGE 5ML ONE (11:27)
[2020-05-23] MEDS ORDERED: ONDANSETRON 4MG INJ IVP PRN (11:30)
[2020-05-23] MEDS ORDERED: MORPHINE 4 MG SYG IV PRN (11:30)
[2020-05-23] MEDS ORDERED: INSULIN HUMULIN R 100 UNIT/ML 3ML SQ PRN (11:30)
[2020-05-23] MEDS ORDERED: HYDROCODONE/ACETAMINOPHEN 5/325 MG TAB PO PRN (11:30)
[2020-05-23] MEDS: 0.9%NACL 1000ML 1,000 ML IV SCH (11:30)
[2020-05-23] MEDS ORDERED: PROPOFOL 10 MG/ML 20ML VIAL IV ONE (11:30)
[2020-05-23] MEDS ORDERED: ACETAMINOPHEN 325 MG TAB PO PRN (11:30)
[2020-05-23] MEDS ORDERED: NEOSTIGMINE 5MG/5ML SYR IV ONE (11:39)
[2020-05-23] MEDS ORDERED: GLYCOPYRROLATE 1 MG/5 ML SYRINGE ONE (11:39)
[2020-05-23] MEDS ORDERED: ONDANSETRON 4MG INJ ONE (11:40)
[2020-05-23] MEDS ORDERED: FENTANYL CITRATE PF 50 MCG/1 ML 2ML VIAL ONE (11:45)
[2020-05-23] MEDS ORDERED: MEPERIDINE-PF 25 MG/ML SYG ONE ×2 (12:50→13:15)
[2020-05-23] MEDS ORDERED: MORPHINE 2 MG SYG ONE (13:31)
[2020-05-23] MEDS: ONDANSETRON 4MG INJ IVP PRN ×2 (14:41→17:20)
[2020-05-23] MEDS ORDERED: MAG/ALUM/SIMETH 30 ML UDCUP ONE (20:18)
[2020-05-23] MEDS ORDERED: MAG/ALUM/SIMETH 30 ML UDCUP PO PRN (20:30)
[2020-05-23] MEDS: CEFTRIAXONE 1G VIAL IVP SCH (20:31)
[2020-05-23] MEDS: FAMOTIDINE 20MG VIAL IV SCH (20:31)
[2020-05-23] MEDS: ATORVASTATIN 40 MG TABLET PO SCH (20:31)
[2020-05-24] MEDS: 0.9%NACL 1000ML 1,000 ML IV SCH (03:19)
[2020-05-24 03:57] VITALS: BP 123/54
[2020-05-24 04:00] LABS: BASOPHILS % (AUTO) 0.5 % (0.0-5.0); EOSINOPHILS % (AUTO) 0.4 % (0.0-8.0); HEMATOCRIT 21.9 % (36-48); LYMPHOCYTES % (AUTO) 19.3 % (21.0-51.0); MEAN CORPUSCULAR HEMOGLOBIN 28.4 pg (27.0-33.0); MEAN CORPUSCULAR HGB CONC 29.2 g/dL (32.0-36.0); MEAN CORPUSCULAR VOLUME 97.3 fL (79-99); MONOCYTES % (AUTO) 9.6 % (3.0-13.0); NEUTROPHILS % (AUTO) 69.4 % (40.0-77.0); PLATELET COUNT (AUTO) 150 K/uL (130-400); RED BLOOD CELL COUNT(AUTO) 2.25 MIL/uL (4.00-5.50); RED CELL DISTRIBUTION WIDTH 18.6 % (11.0-15.5); WHITE BLOOD COUNT (AUTO) 7.8 K/uL (4.8-10.8)
[2020-05-24 04:17] LABS: CREATININE 4.2 mg/dL (0.5-1.5); POTASSIUM 4.1 mmol/L (3.5-5.1)
[2020-05-24] MEDS: MORPHINE 2 MG SYG IVP PRN ×2 (06:53→16:21)
[2020-05-24 08:25] LABS: HEMATOCRIT 21.9 % (36-48)
[2020-05-24 08:28] VITALS: BP 142/54
[2020-05-24 09:10] LABS: HEPATITIS Bs ANTIGEN SCREEN P Negative (Negative)
[2020-05-24] MEDS ORDERED: TRAM50TA4 PO (09:10)
[2020-05-24] MEDS: Vitamin B Complex/Vit C/Folic Acid PO SCH (11:27)
[2020-05-24] MEDS: FAMOTIDINE 20MG VIAL IV SCH (11:27)
[2020-05-24] MEDS: CARVEDILOL 25 MG TABLET PO SCH (11:28)
[2020-05-24 12:07] VITALS: BP 127/60
[2020-05-24] MEDS ORDERED: 0.9% NACL 250ML 250 ML IV ONE (16:12)
[2020-05-24 20:12] VITALS: BP 135/58
== END 2020-05-24 20:27 | disposition home or self-care (01) | DRG 417 ==
LOC: EDH 14:43 → EDHIP 20:00 → 3BH 05-22 08:56
PROVIDERS: ADMIT Internal Medicine; ATTEND Internal Medicine
PROC: 5A1D70Z Performance of Urinary Filtration, Intermittent, Less than 6 Hours Per Day (ICD-10-PCS; 2020-05-20)
PROC: 0FB03ZX Excision of Liver, Percutaneous Approach, Diagnostic (ICD-10-PCS; principal; 2020-05-23 11:27)
PROC: 0FT44ZZ Resection of Gallbladder, Percutaneous Endoscopic Approach (ICD-10-PCS; 2020-05-23 11:27)
PROC: 30233N1 Transfusion of Nonautologous Red Blood Cells into Peripheral Vein, Percutaneous Approach (ICD-10-PCS; 2020-05-24)
PROC: 5A1D70Z Performance of Urinary Filtration, Intermittent, Less than 6 Hours Per Day (ICD-10-PCS; 2020-05-24)
DX: K80.12 Calculus of gallbladder with acute and chronic cholecystitis without obstruction (principal); N18.6 End stage renal disease; K85.90 Acute pancreatitis without necrosis or infection, unspecified; U07.1 COVID-19; I12.0 Hypertensive chronic kidney disease with stage 5 chronic kidney disease or end stage renal disease; D63.8 Anemia in other chronic diseases classified elsewhere; K74.60 Unspecified cirrhosis of liver; E11.22 Type 2 diabetes mellitus with diabetic chronic kidney disease; E11.40 Type 2 diabetes mellitus with diabetic neuropathy, unspecified; E11.51 Type 2 diabetes mellitus with diabetic peripheral angiopathy without gangrene; Z21 Asymptomatic human immunodeficiency virus [HIV] infection status; K76.0 Fatty (change of) liver, not elsewhere classified; I25.5 Ischemic cardiomyopathy; Z99.2 Dependence on renal dialysis; E78.5 Hyperlipidemia, unspecified; I25.10 Atherosclerotic heart disease of native coronary artery without angina pectoris; I45.10 Unspecified right bundle-branch block; Z79.82 Long term (current) use of aspirin; Z79.899 Other long term (current) drug therapy; Z86.16 Personal history of COVID-19; Z86.73 Personal history of transient ischemic attack (TIA), and cerebral infarction without residual deficits; F03.90 Unspecified dementia, unspecified severity, without behavioral disturbance, psychotic disturbance, mood disturbance, and anxiety; Z90.710 Acquired absence of both cervix and uterus; Z95.1 Presence of aortocoronary bypass graft; Z95.5 Presence of coronary angioplasty implant and graft; Z95.810 Presence of automatic (implantable) cardiac defibrillator; Z99.3 Dependence on wheelchair
CPT/HCPCS: 36415; 71045; 76705; 80048; 80053; 82150; 82947; 82948; 83605; 83690; 84100; 85014; 85018; 85025; 85610; 85730; 86704; 86706; 86850; 86900; 86901; 86923; 87340; 87426; 87520; 88304; 88307; 88313; 88341; 88342; 90935; 93005; C9113; G0378; J0696; J1650; J1885; J2001; J2175; J2270; J2405; J2543; J2704; J2710; J2930; J3010; J3490; J7030; J7050; J7070; P9016; U0003

== ENCOUNTER 2021-03-10 18:33 | Emergency (ER) | payer MEDICARE ==
[~2021-03-10] VITALS: Ht 157.5 cm; Wt 59.0 kg
[~2021-03-10 18:33] MED LIST changes: +CALC667C10 PO; -CIPR7.5D OT; -ERGO500093 PO; -FLUO10CA21 PO; +TRAM50TA4 PO
[2021-03-10] MEDS ORDERED: HYDROCODONE/ACETAMINOPHEN 5/325 MG TAB PO ONE (19:00)
[2021-03-10 19:11] LABS: BASOPHILS % (AUTO) 0.2 % (0.0-5.0); EOSINOPHILS % (AUTO) 1.9 % (0.0-8.0); HEMATOCRIT 39.2 % (36-48); LYMPHOCYTES % (AUTO) 36.8 % (21.0-51.0); MEAN CORPUSCULAR HEMOGLOBIN 29.2 pg (27.0-33.0); MEAN CORPUSCULAR HGB CONC 29.8 g/dL (32.0-36.0); MEAN CORPUSCULAR VOLUME 97.8 fL (79-99); MONOCYTES % (AUTO) 8.6 % (3.0-13.0); NEUTROPHILS % (AUTO) 52.3 % (40.0-77.0); PLATELET COUNT (AUTO) 139 K/uL (130-400); RED BLOOD CELL COUNT(AUTO) 4.01 MIL/uL (4.00-5.50); RED CELL DISTRIBUTION WIDTH 16.9 % (11.0-15.5); WHITE BLOOD COUNT (AUTO) 4.2 K/uL (4.8-10.8)
[2021-03-10 19:16] LABS: CREATININE 4.6 mg/dL (0.5-1.5); POTASSIUM 4.4 mmol/L (3.5-5.1)
[2021-03-10 19:21] LABS: ALBUMIN 2.9 g/dL (3.5-5.0); BILIRUBIN,TOTAL 0.6 mg/dL (0.2-1.0)
[2021-03-10] MEDS ORDERED: ACET-2247 PO (19:44)
[2021-03-10] MEDS ORDERED: METH-662 PO (19:44)
[2021-03-10 19:51] VITALS: BP 134/86
== END 2021-03-10 20:07 | disposition home or self-care (01) ==
LOC: EDH 18:33
DX: S20.212A Contusion of left front wall of thorax, initial encounter (principal); N18.6 End stage renal disease; Z99.2 Dependence on renal dialysis; Z95.0 Presence of cardiac pacemaker; X58.XXXA Exposure to other specified factors, initial encounter; Y93.89 Activity, other specified; Y92.89 Other specified places as the place of occurrence of the external cause; Y99.8 Other external cause status
CPT/HCPCS: 36415; 71250; 80053; 84484; 85025

== ENCOUNTER → 2021-12-28 | Outpatient (CLI) | payer MEDICARE ==
[~2021-12-28] MED LIST changes: +METH-662 PO
== END | disposition home or self-care (01) ==
LOC: OIH 13:17
PROVIDERS: ATTEND Internal Medicine Cardiovascular Disease
DX: I08.3 Combined rheumatic disorders of mitral, aortic and tricuspid valves (principal)
CPT/HCPCS: 93306

== ENCOUNTER 2022-02-27 14:48 | Inpatient (IN) | payer MEDICARE ==
[~2022-02-27] VITALS: Ht 152.4 cm; Wt 48.8 kg
[2022-02-27] VITALS (15 sets, daily range): BP systolic 105–129; BP diastolic 43–56
[~2022-02-27 14:48] MED LIST changes: -CILO100T PO; +CILO100T3 PO
[2022-02-27] MEDS ORDERED: DIPHENHYDRAMINE HCL 25 MG CAPSULE PO PRN (15:00)
[2022-02-27] MEDS ORDERED: ACETAMINOPHEN 325 MG TAB PO PRN (15:00)
[2022-02-27] MEDS ORDERED: CLONIDINE HCL 0.1 MG TABLET PO PRN (15:00)
[2022-02-27] MEDS ORDERED: LACTULOSE 20 GM/30 ML UDCUP PO PRN (15:00)
[2022-02-27] MEDS ORDERED: NITROGLYCERIN 0.4 MG SL TAB SL PRN (15:00)
[2022-02-27 15:34] LABS: BASOPHILS % (AUTO) 0.4 % (0.0-5.0); EOSINOPHILS % (AUTO) 1.1 % (0.0-8.0); LYMPHOCYTES % (AUTO) 36.4 % (21.0-51.0); MEAN CORPUSCULAR HEMOGLOBIN 28.1 pg (27.0-33.0); MEAN CORPUSCULAR HGB CONC 30.3 g/dL (32.0-36.0); MEAN CORPUSCULAR VOLUME 92.8 fL (79-99); MONOCYTES % (AUTO) 7.2 % (3.0-13.0); NEUTROPHILS % (AUTO) 54.7 % (40.0-77.0); PLATELET COUNT (AUTO) 217 K/uL (130-400); RED BLOOD CELL COUNT(AUTO) 1.67 MIL/uL (4.00-5.50); RED CELL DISTRIBUTION WIDTH 17.5 % (11.0-15.5); WHITE BLOOD COUNT (AUTO) 4.7 K/uL (4.8-10.8)
[2022-02-27] MEDS: ONDANSETRON 4MG INJ IVP PRN (15:45)
[2022-02-27 15:47] LABS: CARBON DIOXIDE 27 mmol/L (21-32); CHLORIDE 97 mmol/L (101-111); CREATININE 5.6 mg/dL (0.5-1.5); GLOMERULAR FILTR. RATE CALC 8 mL/min (>60); GLUCOSE,RANDOM 85 mg/dL (70-105); POTASSIUM 3.3 mmol/L (3.5-5.1); SODIUM SERUM 133 mmol/L (136-145); UREA NITROGEN, BLOOD 50 mg/dL (7-18)
[2022-02-27 15:52] LABS: ALBUMIN 2.4 g/dL (3.5-5.0); ASPARTATE AMINOTRANSFERASE 13 U/L (10-37); HEMATOCRIT 15.5 % (36-48); TOTAL PROTEIN, SERUM 6.8 g/dL (6.0-8.3)
[2022-02-27 16:00] LABS: ALANINE AMINOTRANSFERASE < 6 U/L (12-78)
[2022-02-27] MEDS ORDERED: DARU1TAB PO (17:14)
[2022-02-27] MEDS ORDERED: DOLU50TA PO (17:16)
[2022-02-27] MEDS ORDERED: CLOP75TA32 PO (17:16)
[2022-02-27] MEDS ORDERED: AMLO-390 PO (17:17)
[2022-02-27] MEDS ORDERED: CALC667T8 PO (17:18)
[2022-02-27] MEDS ORDERED: CARV25TA PO (17:18)
[2022-02-27] MEDS ORDERED: DULO30CA52 PO (17:19)
[2022-02-27] MEDS ORDERED: LEVO25CA4 PO (17:21)
[2022-02-27] MEDS ORDERED: ATOR20TA65 PO (17:21)
[2022-02-27] MEDS ORDERED: FOLI0.8T22 PO (17:23)
[2022-02-27] MEDS ORDERED: URSO250T12 PO (17:24)
[2022-02-27] MEDS ORDERED: CILO100T3 PO (17:25)
[2022-02-27] MEDS ORDERED: INSU100I24 SQ (17:25)
[2022-02-27 19:32] LABS: % IRON SATURATION 40.4 % (22-44)
[2022-02-27 22:02] LABS: HEPATITIS B SURFACE ANTIGEN Non-Reactive (Nonreactive)
[2022-02-28] VITALS: BP 119/53
[2022-02-28 00:15] LABS: HEMATOCRIT 20.8 % (36-48)
[2022-02-28] MEDS ORDERED: GLUCAGON 1MG KIT 1 MG ML IM PRN (02:00)
[2022-02-28 04:08] LABS: BASOPHILS % (AUTO) 0.2 % (0.0-5.0); EOSINOPHILS % (AUTO) 0.8 % (0.0-8.0); HEMATOCRIT 21.5 % (36-48); LYMPHOCYTES % (AUTO) 28.3 % (21.0-51.0); MEAN CORPUSCULAR HEMOGLOBIN 28.8 pg (27.0-33.0); MEAN CORPUSCULAR HGB CONC 32.6 g/dL (32.0-36.0); MEAN CORPUSCULAR VOLUME 88.5 fL (79-99); MONOCYTES % (AUTO) 8.7 % (3.0-13.0); NEUTROPHILS % (AUTO) 61.8 % (40.0-77.0); NUCLEATED RED BLOOD CELLS 0.4 % (0.0-0.19); PLATELET COUNT (AUTO) 189 K/uL (130-400); RED BLOOD CELL COUNT(AUTO) 2.43 MIL/uL (4.00-5.50); WHITE BLOOD COUNT (AUTO) 4.7 K/uL (4.8-10.8)
[2022-02-28 04:20] VITALS: BP 137/54
[2022-02-28 04:29] LABS: ALBUMIN 2.4 g/dL (3.5-5.0); CREATININE 3.1 mg/dL (0.5-1.5); PHOSPHORUS 1.9 mg/dL (2.5-4.9); POTASSIUM 3.1 mmol/L (3.5-5.1); TOTAL PROTEIN, SERUM 6.9 g/dL (6.0-8.3)
[2022-02-28] MEDS: INSULIN HUMULIN R 100 UNIT/ML 3ML SQ SCH ×4 (05:43→20:28)
[2022-02-28] MEDS ORDERED: LEVOTHYROXINE 25 MCG TABLET ONE (06:51)
[2022-02-28] MEDS: LEVOTHYROXINE 25 MCG TABLET PO SCH (07:00)
[2022-02-28 07:30] VITALS: BP 123/57
[2022-02-28] MEDS: PREZCOBIX PO SCH (07:56)
[2022-02-28] MEDS: TIVICAY 50 MG PO SCH (07:59)
[2022-02-28] MEDS: URSODIOL 250 MG PO SCH ×3 (07:59→20:28)
[2022-02-28] MEDS: CARVEDILOL 25 MG TABLET PO SCH ×2 (08:35→20:30)
[2022-02-28] MEDS: PANTOPRAZOLE 40 MG/VIAL IVP SCH (08:36)
[2022-02-28] MEDS: Vitamin B Complex/Vit C/Folic Acid PO SCH (08:36)
[2022-02-28] MEDS: DULOXETINE HCL 30 MG CAP PO SCH (08:36)
[2022-02-28] MEDS: AMLODIPINE 5 MG TAB PO SCH (08:37)
[2022-02-28] MEDS ORDERED: LEVOTHYROXINE 25 MCG TABLET PO SCH (09:00)
[2022-02-28] MEDS ORDERED: CALCIUM AC 667MG CAP PO SCH (09:00)
[2022-02-28 11:00] VITALS: BP 106/47
[2022-02-28 16:00] VITALS: BP 110/52
[2022-02-28] MEDS ORDERED: ATORVASTATIN 20 MG TABLET ONE (19:27)
[2022-02-28] MEDS: ATORVASTATIN 20 MG TABLET PO SCH (20:29)
[2022-02-28 20:33] VITALS: BP 111/50
[2022-02-28] MEDS: CYANOCOBALAMIN (VITAMIN B-12) 1000 MCG/ML 1ML VIAL IM SCH (20:57)
[2022-03-01] VITALS (21 sets, daily range): BP systolic 117–147; BP diastolic 51–77
[2022-03-01] MEDS: LEVOTHYROXINE 25 MCG TABLET PO SCH ×2 (04:44→19:28)
[2022-03-01] MEDS: DEXTROSE 50%-WATER 50 ML DISP.SYRIN IV PRN (05:53)
[2022-03-01 05:54] LABS: HEMATOCRIT 22.2 % (36-48); MEAN CORPUSCULAR HEMOGLOBIN 28.9 pg (27.0-33.0); MEAN CORPUSCULAR VOLUME 90.2 fL (79-99); NUCLEATED RED BLOOD CELLS 0.5 % (0.0-0.19); RED BLOOD CELL COUNT(AUTO) 2.46 MIL/uL (4.00-5.50); RED CELL DISTRIBUTION WIDTH 17.2 % (11.0-15.5); WHITE BLOOD COUNT (AUTO) 4.4 K/uL (4.8-10.8)
[2022-03-01 06:04] LABS: CREATININE 4.3 mg/dL (0.5-1.5); PHOSPHORUS 2.6 mg/dL (2.5-4.9); POTASSIUM 3.4 mmol/L (3.5-5.1)
[2022-03-01] MEDS: INSULIN HUMULIN R 100 UNIT/ML 3ML SQ SCH ×4 (06:12→21:00)
[2022-03-01] MEDS: PANTOPRAZOLE 40 MG/VIAL IVP SCH (08:52)
[2022-03-01] MEDS: DULOXETINE HCL 30 MG CAP PO SCH (08:52)
[2022-03-01] MEDS: URSODIOL 250 MG PO SCH ×3 (08:53→21:00)
[2022-03-01] MEDS: TIVICAY 50 MG PO SCH (08:53)
[2022-03-01] MEDS: PREZCOBIX PO SCH (08:53)
[2022-03-01] MEDS: Vitamin B Complex/Vit C/Folic Acid PO SCH (08:53)
[2022-03-01] MEDS: AMLODIPINE 5 MG TAB PO SCH (09:00)
[2022-03-01] MEDS: CARVEDILOL 25 MG TABLET PO SCH ×2 (09:00→21:00)
[2022-03-01] MEDS ORDERED: IOHEXOL 350 MG/ML 100ML INFUS..BTL IV ONE (15:35)
[2022-03-01] MEDS ORDERED: PEG 3350/NA SULF,BICARB,CL/KCL 4000 ML SOLN PO SCH (16:00)
[2022-03-01] MEDS: ATORVASTATIN 20 MG TABLET PO SCH (21:00)
[2022-03-01] MEDS: ONDANSETRON 4MG INJ IVP PRN (22:19)
[2022-03-01] MEDS: CYANOCOBALAMIN (VITAMIN B-12) 1000 MCG/ML 1ML VIAL IM SCH (22:20)
[2022-03-02] VITALS (24 sets, daily range): BP systolic 98–137; BP diastolic 44–62
[2022-03-02 04:39] LABS: HEMATOCRIT 23.9 % (36-48); MEAN CORPUSCULAR HEMOGLOBIN 29.1 pg (27.0-33.0); MEAN CORPUSCULAR HGB CONC 32.6 g/dL (32.0-36.0); MEAN CORPUSCULAR VOLUME 89.2 fL (79-99); RED BLOOD CELL COUNT(AUTO) 2.68 MIL/uL (4.00-5.50); RED CELL DISTRIBUTION WIDTH 16.9 % (11.0-15.5); WHITE BLOOD COUNT (AUTO) 3.8 K/uL (4.8-10.8)
[2022-03-02 04:49] LABS: INR 1.08 (0.85-1.15); PROTHROMBIN TIME 11.7 SEC (9.6-11.6)
[2022-03-02 04:50] LABS: PARTIAL THROMBOPLASTIN TIME 33.7 SEC (26.3-35.5)
[2022-03-02 05:25] LABS: CREATININE 2.7 mg/dL (0.5-1.5); PHOSPHORUS 2.3 mg/dL (2.5-4.9); POTASSIUM 3.6 mmol/L (3.5-5.1)
[2022-03-02] MEDS: INSULIN HUMULIN R 100 UNIT/ML 3ML SQ SCH ×4 (05:47→20:14)
[2022-03-02] MEDS: DEXTROSE 50%-WATER 50 ML DISP.SYRIN IV PRN (05:50)
[2022-03-02] MEDS: DULOXETINE HCL 30 MG CAP PO SCH (08:31)
[2022-03-02] MEDS: PANTOPRAZOLE 40 MG/VIAL IVP SCH (08:31)
[2022-03-02] MEDS: Vitamin B Complex/Vit C/Folic Acid PO SCH (08:32)
[2022-03-02] MEDS: CARVEDILOL 25 MG TABLET PO SCH ×2 (08:32→20:07)
[2022-03-02] MEDS: AMLODIPINE 5 MG TAB PO SCH (08:33)
[2022-03-02] MEDS: PREZCOBIX PO SCH (08:34)
[2022-03-02] MEDS: URSODIOL 250 MG PO SCH ×3 (08:34→20:13)
[2022-03-02] MEDS: TIVICAY 50 MG PO SCH (08:34)
[2022-03-02] MEDS ORDERED: LIDOCAINE HCL 1% 20 ML VIAL ONE (12:19)
[2022-03-02] MEDS ORDERED: PROPOFOL 10 MG/ML 20ML VIAL IV ONE (12:19)
[2022-03-02] MEDS: CYANOCOBALAMIN (VITAMIN B-12) 1000 MCG/ML 1ML VIAL IM SCH (20:12)
[2022-03-02] MEDS: ATORVASTATIN 20 MG TABLET PO SCH (20:12)
[2022-03-03] VITALS (19 sets, daily range): BP systolic 106–155; BP diastolic 52–63
[2022-03-03] MEDS: LEVOTHYROXINE 25 MCG TABLET PO SCH (04:28)
[2022-03-03] MEDS: INSULIN HUMULIN R 100 UNIT/ML 3ML SQ SCH ×2 (05:30→11:30)
[2022-03-03] MEDS: AMLODIPINE 5 MG TAB PO SCH (08:50)
[2022-03-03] MEDS: DULOXETINE HCL 30 MG CAP PO SCH (08:51)
[2022-03-03] MEDS: PANTOPRAZOLE 40 MG/VIAL IVP SCH (08:51)
[2022-03-03] MEDS: CARVEDILOL 25 MG TABLET PO SCH (08:51)
[2022-03-03] MEDS: Vitamin B Complex/Vit C/Folic Acid PO SCH (08:51)
[2022-03-03] MEDS: PREZCOBIX PO SCH (09:00)
[2022-03-03] MEDS: URSODIOL 250 MG PO SCH ×2 (09:00→14:00)
[2022-03-03] MEDS: TIVICAY 50 MG PO SCH (09:00)
[2022-03-03 09:31] LABS: HEMATOCRIT 24.9 % (36-48); MEAN CORPUSCULAR HEMOGLOBIN 28.5 pg (27.0-33.0); MEAN CORPUSCULAR HGB CONC 30.5 g/dL (32.0-36.0); MEAN CORPUSCULAR VOLUME 93.3 fL (79-99); RED BLOOD CELL COUNT(AUTO) 2.67 MIL/uL (4.00-5.50); WHITE BLOOD COUNT (AUTO) 4.1 K/uL (4.8-10.8)
[2022-03-03 09:38] LABS: CREATININE 4.1 mg/dL (0.5-1.5); POTASSIUM 4.2 mmol/L (3.5-5.1)
[2022-03-03] MEDS ORDERED: EPOETIN ALFA-EPBX (NON-ESRD) 10,000 UNIT/ML VIAL SQ SCH (15:00)
== END 2022-03-03 15:28 | disposition home or self-care (01) | DRG 377 ==
LOC: EDH 14:48 → OBSVTOIN 16:14 → EDHIP 16:14 → DIRECT 16:15 → 4DH 22:25
PROVIDERS: ADMIT Internal Medicine; ATTEND Internal Medicine
PROC: 30233N1 Transfusion of Nonautologous Red Blood Cells into Peripheral Vein, Percutaneous Approach (ICD-10-PCS; principal; 2022-02-27)
PROC: 5A1D70Z Performance of Urinary Filtration, Intermittent, Less than 6 Hours Per Day (ICD-10-PCS; 2022-02-27)
PROC: 5A1D70Z Performance of Urinary Filtration, Intermittent, Less than 6 Hours Per Day (ICD-10-PCS; 2022-03-01)
PROC: 0DB68ZZ Excision of Stomach, Via Natural or Artificial Opening Endoscopic (ICD-10-PCS; 2022-03-02)
PROC: 0DBK8ZZ Excision of Ascending Colon, Via Natural or Artificial Opening Endoscopic (ICD-10-PCS; 2022-03-02)
PROC: 0DBM8ZZ Excision of Descending Colon, Via Natural or Artificial Opening Endoscopic (ICD-10-PCS; 2022-03-02)
PROC: 0DBH8ZZ Excision of Cecum, Via Natural or Artificial Opening Endoscopic (ICD-10-PCS; 2022-03-02)
PROC: 5A1D70Z Performance of Urinary Filtration, Intermittent, Less than 6 Hours Per Day (ICD-10-PCS; 2022-03-03)
DX: K92.2 Gastrointestinal hemorrhage, unspecified (principal); N18.6 End stage renal disease; D62 Acute posthemorrhagic anemia; I13.2 Hypertensive heart and chronic kidney disease with heart failure and with stage 5 chronic kidney disease, or end stage renal disease; Z20.822 Contact with and (suspected) exposure to COVID-19; I25.10 Atherosclerotic heart disease of native coronary artery without angina pectoris; Z99.2 Dependence on renal dialysis; E11.22 Type 2 diabetes mellitus with diabetic chronic kidney disease; E11.51 Type 2 diabetes mellitus with diabetic peripheral angiopathy without gangrene; E78.00 Pure hypercholesterolemia, unspecified; F03.A0 Unspecified dementia, mild, without behavioral disturbance, psychotic disturbance, mood disturbance, and anxiety; I48.91 Unspecified atrial fibrillation; I50.9 Heart failure, unspecified; M15.9 Polyosteoarthritis, unspecified; Z86.73 Personal history of transient ischemic attack (TIA), and cerebral infarction without residual deficits; Z95.1 Presence of aortocoronary bypass graft; Z95.5 Presence of coronary angioplasty implant and graft; Z95.810 Presence of automatic (implantable) cardiac defibrillator; Z21 Asymptomatic human immunodeficiency virus [HIV] infection status
CPT/HCPCS: 36415; 43239; 45385; 74177; 80048; 80053; 82270; 82728; 82948; 83018; 83540; 83550; 84100; 85014; 85018; 85025; 85027; 85610; 85730; 86704; 86706; 86850; 86900; 86901; 86923; 87324; 87340; 87635; 90935; C9113; G0378; J2405; J2704; J3420; J7030; J7070; P9016; Q9967

== ENCOUNTER 2022-06-29 21:23 | Inpatient (IN) | payer MEDICARE ==
[~2022-06-29] VITALS: Ht 152.4 cm; Wt 44.7 kg
[~2022-06-29 21:23] MED LIST changes: -AMLO-258 PO; +AMLO-390 PO; -ASPI-556 PO; -ATOR-2 PO; +ATOR20TA65 PO; -CALC667C10 PO; +CLOP75TA32 PO; +INSU100I24 SQ; -INSU100V37 SQ; +LEVO25CA4 PO; -METH-662 PO; -TRAM50TA4 PO; +URSO250T12 PO
[2022-06-29 21:56] LABS: BASOPHILS % (AUTO) 0.4 % (0.0-5.0); EOSINOPHILS % (AUTO) 0.9 % (0.0-8.0); HEMATOCRIT 34.6 % (36-48); LYMPHOCYTES % (AUTO) 27.2 % (21.0-51.0); MEAN CORPUSCULAR HEMOGLOBIN 28.1 pg (27.0-33.0); MEAN CORPUSCULAR HGB CONC 30.6 g/dL (32.0-36.0); MEAN CORPUSCULAR VOLUME 91.8 fL (79-99); MONOCYTES % (AUTO) 6.7 % (3.0-13.0); NEUTROPHILS % (AUTO) 64.4 % (40.0-77.0); PLATELET COUNT (AUTO) 187 K/uL (130-400); RED BLOOD CELL COUNT(AUTO) 3.77 MIL/uL (4.00-5.50); RED CELL DISTRIBUTION WIDTH 18.7 % (11.0-15.5); WHITE BLOOD COUNT (AUTO) 4.6 K/uL (4.8-10.8)
[2022-06-29 22:08] LABS: POTASSIUM 3.3 mmol/L (3.5-5.1)
[2022-06-29 22:10] LABS: INR 1.04 (0.85-1.15); PROTHROMBIN TIME 11.3 SEC (9.6-11.6)
[2022-06-29 22:11] LABS: PARTIAL THROMBOPLASTIN TIME 39.4 SEC (26.3-35.5)
[2022-06-29 22:14] LABS: ALBUMIN 2.7 g/dL (3.5-5.0)
[2022-06-29] MEDS ORDERED: INSU100I24 SQ (22:56)
[2022-06-29] MEDS ORDERED: DARU1TAB PO (22:56)
[2022-06-29] MEDS ORDERED: AMLO-257 PO (22:56)
[2022-06-29] MEDS ORDERED: DULO30CA52 PO (22:56)
[2022-06-29] MEDS ORDERED: FOLI1TAB85 PO (22:56)
[2022-06-29] MEDS ORDERED: ACET-2247 PO (22:56)
[2022-06-29] MEDS ORDERED: URSO250T12 PO (22:56)
[2022-06-29] MEDS ORDERED: CLOP75TA32 PO (22:56)
[2022-06-29] MEDS ORDERED: LEVO50CA4 PO (22:56)
[2022-06-29] MEDS ORDERED: ATOR20TA65 PO (22:56)
[2022-06-29] MEDS ORDERED: CARV25TA PO (22:56)
[2022-06-29] MEDS ORDERED: CALC667T8 PO (22:56)
[2022-06-29] MEDS ORDERED: CILO100T3 PO (22:56)
[2022-06-29] MEDS ORDERED: DOLU50TA PO (22:56)
[2022-06-30] VITALS (30 sets, daily range): BP systolic 110–153; BP diastolic 55–80
[2022-06-30] MEDS ORDERED: HYDROMORPHONE 0.5 MG SYG (0.5MG/0.5ML) IVP PRN
[2022-06-30 01:33] LABS: B-TYPE NATRIURETIC PEPTIDE 842 pg/mL (0-100)
[2022-06-30] MEDS: LEVOTHYROXINE 50 MCG TABLET PO SCH (04:37)
[2022-06-30] MEDS: INSULIN HUMULIN R 100 UNIT/ML 3ML SQ SCH ×4 (05:16→20:08)
[2022-06-30] MEDS ORDERED: GLUCAGON 1MG KIT 1 MG ML IM PRN (06:00)
[2022-06-30] MEDS ORDERED: DEXTROSE 50%-WATER 50 ML DISP.SYRIN IV PRN (06:00)
[2022-06-30] MEDS: CLOPIDOGREL 75MG TAB PO SCH (09:00)
[2022-06-30] MEDS: PREZCOBIX PO SCH (09:00)
[2022-06-30] MEDS: TIVICAY 50 MG PO SCH (09:00)
[2022-06-30] MEDS: URSODIOL 250 MG PO SCH ×3 (09:00→20:01)
[2022-06-30] MEDS: DULOXETINE HCL 30 MG CAP PO SCH (09:55)
[2022-06-30] MEDS: AMLODIPINE 5 MG TAB PO SCH (09:56)
[2022-06-30] MEDS: CARVEDILOL 25 MG TABLET PO SCH ×2 (09:56→20:01)
[2022-06-30] MEDS: CILOSTAZOL 100 MG TAB PO SCH ×2 (09:56→19:59)
[2022-06-30] MEDS: ACETAMINOPHEN 325 MG TAB PO SCH ×2 (09:57→20:00)
[2022-06-30] MEDS: Vitamin B Complex/Vit C/Folic Acid PO SCH (09:57)
[2022-06-30] MEDS: CALCIUM AC 667MG CAP PO SCH ×3 (09:57→20:06)
[2022-06-30 17:01] LABS: BODY FLUID RBC 504 /cu. mm.; BODY FLUID WBC 360 /cu. mm.
[2022-06-30 17:05] LABS: APPEARANCE BODY FLUID CLEAR (CLEAR); COLOR,BODY FLUID YELLOW (LT YELLOW); SPECIMENTYPE,BODY FLUID PLEURAL; TOTAL VOLUME,BODY FLUID 1500 mL
[2022-06-30] MEDS ORDERED: LIDOCAINE HCL MPF 1% 5ML VIAL ONE (17:17)
[2022-06-30 17:38] LABS: BF EOSINOPHIL 1 %; BF LYMPHOCYTE 17 %; BF OTHER CELLS 8
[2022-06-30] MEDS ORDERED: ATORVASTATIN 20 MG TABLET PO SCH (21:00)
[2022-07-01 03:51] VITALS: BP 129/58
[2022-07-01 05:40] LABS: HEMATOCRIT 31.4 % (36-48); MEAN CORPUSCULAR HEMOGLOBIN 27.5 pg (27.0-33.0); MEAN CORPUSCULAR HGB CONC 29.9 g/dL (32.0-36.0); MEAN CORPUSCULAR VOLUME 91.8 fL (79-99); RED BLOOD CELL COUNT(AUTO) 3.42 MIL/uL (4.00-5.50); RED CELL DISTRIBUTION WIDTH 18.4 % (11.0-15.5); WHITE BLOOD COUNT (AUTO) 4.2 K/uL (4.8-10.8)
[2022-07-01] MEDS: LEVOTHYROXINE 50 MCG TABLET PO SCH (05:47)
[2022-07-01] MEDS: INSULIN HUMULIN R 100 UNIT/ML 3ML SQ SCH ×3 (05:48→17:50)
[2022-07-01 06:09] LABS: CREATININE 2.8 mg/dL (0.5-1.5); PHOSPHORUS 2.9 mg/dL (2.5-4.9); POTASSIUM 3.6 mmol/L (3.5-5.1)
[2022-07-01 08:00] VITALS: BP 122/58
[2022-07-01] MEDS: DULOXETINE HCL 30 MG CAP PO SCH (08:42)
[2022-07-01] MEDS: CILOSTAZOL 100 MG TAB PO SCH (08:42)
[2022-07-01] MEDS: CARVEDILOL 25 MG TABLET PO SCH (08:42)
[2022-07-01] MEDS: ACETAMINOPHEN 325 MG TAB PO SCH (08:42)
[2022-07-01] MEDS: CLOPIDOGREL 75MG TAB PO SCH (08:43)
[2022-07-01] MEDS: AMLODIPINE 5 MG TAB PO SCH (08:43)
[2022-07-01] MEDS: Vitamin B Complex/Vit C/Folic Acid PO SCH (08:43)
[2022-07-01] MEDS: URSODIOL 250 MG PO SCH ×2 (08:44→14:00)
[2022-07-01] MEDS: TIVICAY 50 MG PO SCH (08:44)
[2022-07-01] MEDS: PREZCOBIX PO SCH (08:44)
[2022-07-01] MEDS: CALCIUM AC 667MG CAP PO SCH ×2 (08:44→17:48)
[2022-07-01 11:23] VITALS: BP 120/56
[2022-07-01 16:00] VITALS: BP 110/54
[2022-07-01 19:00] VITALS: BP 111/50
== END 2022-07-01 20:25 | disposition home or self-care (01) | DRG 186 ==
LOC: EDH 21:23 → EDHIP 23:40 → 3BH 06-30 00:50
PROVIDERS: ADMIT Internal Medicine; ATTEND Internal Medicine
PROC: 5A1D70Z Performance of Urinary Filtration, Intermittent, Less than 6 Hours Per Day (ICD-10-PCS; principal; 2022-06-30)
DX: J90 Pleural effusion, not elsewhere classified (principal); J18.9 Pneumonia, unspecified organism; N18.6 End stage renal disease; H70.002 Acute mastoiditis without complications, left ear; I13.2 Hypertensive heart and chronic kidney disease with heart failure and with stage 5 chronic kidney disease, or end stage renal disease; K86.1 Other chronic pancreatitis; R18.8 Other ascites; S02.2XXA Fracture of nasal bones, initial encounter for closed fracture; J32.0 Chronic maxillary sinusitis; D64.9 Anemia, unspecified; E03.9 Hypothyroidism, unspecified; E11.22 Type 2 diabetes mellitus with diabetic chronic kidney disease; E11.51 Type 2 diabetes mellitus with diabetic peripheral angiopathy without gangrene; E78.00 Pure hypercholesterolemia, unspecified; F03.90 Unspecified dementia, unspecified severity, without behavioral disturbance, psychotic disturbance, mood disturbance, and anxiety; I25.10 Atherosclerotic heart disease of native coronary artery without angina pectoris; I48.91 Unspecified atrial fibrillation; I50.9 Heart failure, unspecified; K74.60 Unspecified cirrhosis of liver; F41.9 Anxiety disorder, unspecified; M85.80 Other specified disorders of bone density and structure, unspecified site; Z21 Asymptomatic human immunodeficiency virus [HIV] infection status; W06.XXXA Fall from bed, initial encounter; Y93.89 Activity, other specified; Y92.89 Other specified places as the place of occurrence of the external cause; Y99.8 Other external cause status; Z90.710 Acquired absence of both cervix and uterus; Z95.1 Presence of aortocoronary bypass graft; Z99.2 Dependence on renal dialysis; Z88.8 Allergy status to other drugs, medicaments and biological substances
CPT/HCPCS: 32555; 36415; 70450; 70486; 71045; 72125; 73030; 73660; 74176; 80048; 80053; 82948; 83605; 83690; 83880; 84100; 84484; 85025; 85027; 85610; 85730; 87071; 87205; 87635; 89051; 90935; 93005; C1729; G0378; J1610; J1815; J3490

== ENCOUNTER 2022-12-06 20:41 | Observation (INO) | payer MEDICARE ==
[~2022-12-06] VITALS: Ht 147.3 cm; Wt 53.5 kg
[~2022-12-06 20:41] MED LIST changes: +AMLO-257 PO; -AMLO-390 PO; +CALC667T8 PO; -CILO100T3 PO; -CLOP75TA32 PO; +FOLI1TAB85 PO; -LEVO25CA4 PO; +LEVO50CA4 PO
[2022-12-06 21:22] LABS: BASOPHILS # (AUTO) 0.01 K/uL (0.00-0.20); BASOPHILS % (AUTO) 0.3 % (0.0-5.0); EOSINOPHILS # (AUTO) 0.06 K/uL (0.00-0.70); EOSINOPHILS % (AUTO) 1.8 % (0.0-8.0); HEMATOCRIT 25.2 % (36-48); IMMATURE GRANULOCYTE ABSOLUTE 0.01 K/uL (0-1); MEAN CORPUSCULAR HEMOGLOBIN 28.2 pg (27.0-33.0); MEAN CORPUSCULAR HGB CONC 30.6 g/dL (32.0-36.0); MEAN CORPUSCULAR VOLUME 92.3 fL (79-99); MONOCYTES # (AUTO) 0.4 K/uL (0.1-1.0); MONOCYTES % (AUTO) 10.8 % (3.0-13.0); NEUTROPHILS # (AUTO) 1.9 K/uL (1.8-7.7); NEUTROPHILS % (AUTO) 57.8 % (40.0-77.0); PLATELET COUNT (AUTO) 185 K/uL (130-400); RED BLOOD CELL COUNT(AUTO) 2.73 MIL/uL (4.00-5.50); RED CELL DISTRIBUTION WIDTH 17.8 % (11.0-15.5); WHITE BLOOD COUNT (AUTO) 3.3 K/uL (4.8-10.8)
[2022-12-06 21:26] LABS: INR 1.03 (0.85-1.15); PROTHROMBIN TIME 11.9 SEC (9.6-11.6)
[2022-12-06 21:27] LABS: ALBUMIN 2.4 g/dL (3.5-5.0); BILIRUBIN,TOTAL 0.4 mg/dL (0.2-1.0); CREATININE 1.7 mg/dL (0.5-1.5); TOTAL PROTEIN, SERUM 7.7 g/dL (6.0-8.3)
[2022-12-06 21:33] LABS: POTASSIUM 2.9 mmol/L (3.5-5.1)
[2022-12-06 21:36] LABS: SARS-CoV-2, RNA, NAAT NEGATIVE SARS CoV-2 (NEGATIVE)
[2022-12-06 21:45] LABS: INFLUENZA TYPE A Negative For Type A (NEGATIVE); INFLUENZA TYPE B Negative For Type B (NEGATIVE)
[2022-12-06] MEDS ORDERED: POTASSIUM BICARB/CIT AC 25 MEQ TABLET.EFF PO ONE (22:30)
[2022-12-06] MEDS ORDERED: CLOP75TA32 PO (23:20)
[2022-12-06] MEDS ORDERED: PANT40TA54 PO (23:20)
[2022-12-06] MEDS ORDERED: CILO100T3 PO (23:20)
[2022-12-06] MEDS ORDERED: ATOR10 PO (23:20)
[2022-12-06] MEDS ORDERED: DOLU50TA PO (23:20)
[2022-12-06] MEDS ORDERED: LEVO75CA5 PO (23:20)
[2022-12-06] MEDS ORDERED: INSU100I24 SQ (23:20)
[2022-12-06] MEDS ORDERED: DARU1TAB PO (23:20)
[2022-12-06] MEDS ORDERED: CEFTRIAXONE 1G VIAL IVPB SCH (23:30)
[2022-12-07 07:16] LABS: BASOPHILS # (AUTO) 0.02 K/uL (0.00-0.20); BASOPHILS % (AUTO) 0.6 % (0.0-5.0); EOSINOPHILS # (AUTO) 0.07 K/uL (0.00-0.70); HEMATOCRIT 27.3 % (36-48); IMMATURE GRANULOCYTE ABSOLUTE 0.02 K/uL (0-1); LYMPHOCYTES # (AUTO) 1.2 K/uL (1.0-4.8); LYMPHOCYTES % (AUTO) 33.2 % (21.0-51.0); MEAN CORPUSCULAR HEMOGLOBIN 27.7 pg (27.0-33.0); MEAN CORPUSCULAR HGB CONC 30.4 g/dL (32.0-36.0); MONOCYTES # (AUTO) 0.4 K/uL (0.1-1.0); MONOCYTES % (AUTO) 11.6 % (3.0-13.0); NEUTROPHILS # (AUTO) 1.8 K/uL (1.8-7.7); PLATELET COUNT (AUTO) 187 K/uL (130-400); RED CELL DISTRIBUTION WIDTH 17.8 % (11.0-15.5); WHITE BLOOD COUNT (AUTO) 3.5 K/uL (4.8-10.8)
[2022-12-07 07:19] VITALS: PULSE 80; RESP 16; O2SAT 100
[2022-12-07 07:29] LABS: ALBUMIN 2.4 g/dL (3.5-5.0); BILIRUBIN,TOTAL 0.4 mg/dL (0.2-1.0); CREATININE 2.5 mg/dL (0.5-1.5); POTASSIUM 3.9 mmol/L (3.5-5.1); TOTAL PROTEIN, SERUM 7.8 g/dL (6.0-8.3)
[2022-12-07] MEDS ORDERED: INSULIN HUMULIN R 100 UNIT/ML 3ML SQ SCH (07:30)
[2022-12-07] MEDS ORDERED: CALCIUM AC 667MG CAP PO SCH (08:00)
[2022-12-07 08:46] VITALS: BP 127/58
[2022-12-07] MEDS: CILOSTAZOL 100 MG TAB PO SCH ×2 (08:53→08:58)
[2022-12-07] MEDS ORDERED: CLOPIDOGREL 75MG TAB PO SCH (09:00)
[2022-12-07] MEDS ORDERED: NON-FORMULARY MEDICATION 1 EACH (Levothyroxine Sodium (Levothyroxine) 75 MCG) PO SCH (09:00)
[2022-12-07] MEDS ORDERED: DULOXETINE HCL 30 MG CAP PO SCH (09:00)
[2022-12-07] MEDS ORDERED: AMLODIPINE 5 MG TAB PO SCH (09:00)
[2022-12-07] MEDS ORDERED: URSODIOL 300 MG CAPSULE PO SCH (09:00)
[2022-12-07] MEDS ORDERED: Ursodiol 250 MG PO SCH (09:00)
[2022-12-07] MEDS ORDERED: PANTOPRAZOLE 40 MG TAB DR PO SCH (09:00)
[2022-12-07] MEDS ORDERED: Vitamin B Complex/Vit C/Folic Acid PO SCH (09:00)
[2022-12-07] MEDS ORDERED: NON-FORMULARY MEDICATION 1 EACH (Folic Acid/Vitamin B Comp W-C (Rena-Vite Tablet) 0.8 MG) PO SCH (09:00)
[2022-12-07] MEDS ORDERED: ACETAMINOPHEN 325 MG TAB PO SCH (09:00)
[2022-12-07] MEDS ORDERED: CARVEDILOL 25 MG TABLET PO SCH (09:00)
[2022-12-07] MEDS ORDERED: CALCIUM ACETATE 1334 MG PO SCH (09:00)
[2022-12-07] MEDS ORDERED: ATORVASTATIN 10 MG TABLET PO SCH (21:00)
[2022-12-08] MEDS ORDERED: LEVOTHYROXINE 75 MCG TABLET PO SCH (06:30)
== END 2022-12-07 13:15 | disposition home or self-care (01) ==
LOC: EDH 20:41 → INTOOBSV 22:41 → EDHIP 22:41
PROVIDERS: ADMIT Internal Medicine; ATTEND Internal Medicine
DX: R41.82 Altered mental status, unspecified (principal); Z20.822 Contact with and (suspected) exposure to COVID-19; I12.0 Hypertensive chronic kidney disease with stage 5 chronic kidney disease or end stage renal disease; E11.22 Type 2 diabetes mellitus with diabetic chronic kidney disease; N18.6 End stage renal disease; I25.10 Atherosclerotic heart disease of native coronary artery without angina pectoris; J90 Pleural effusion, not elsewhere classified; I48.91 Unspecified atrial fibrillation; F32.A Depression, unspecified; E78.00 Pure hypercholesterolemia, unspecified; F03.90 Unspecified dementia, unspecified severity, without behavioral disturbance, psychotic disturbance, mood disturbance, and anxiety; Z86.73 Personal history of transient ischemic attack (TIA), and cerebral infarction without residual deficits; Z99.2 Dependence on renal dialysis; Z79.899 Other long term (current) drug therapy
CPT/HCPCS: 84484; 80053 ×2; 82140; 85025 ×2; 85610; 85730; 87040 ×2; 87804 ×2; 36415 ×2; 87635; 71045; 70450; 99291; 93005; 96365; C9803; G0378 ×6; J0696

== ENCOUNTER 2022-12-18 19:15 | Emergency (ER) | payer MEDICARE ==
[~2022-12-18 19:15] MED LIST changes: +ATOR10 PO; +CILO100T3 PO; +CLOP75TA32 PO; +LEVO75CA5 PO; +PANT40TA54 PO
[2022-12-18 20:33] LABS: BASOPHILS # (AUTO) 0.02 K/uL (0.00-0.20); BASOPHILS % (AUTO) 0.5 % (0.0-5.0); EOSINOPHILS # (AUTO) 0.06 K/uL (0.00-0.70); EOSINOPHILS % (AUTO) 1.5 % (0.0-8.0); HEMATOCRIT 24.4 % (36-48); IMMATURE GRANULOCYTE ABSOLUTE 0.01 K/uL (0-1); LYMPHOCYTES % (AUTO) 25.6 % (21.0-51.0); MEAN CORPUSCULAR HGB CONC 30.7 g/dL (32.0-36.0); MONOCYTES # (AUTO) 0.4 K/uL (0.1-1.0); MONOCYTES % (AUTO) 9.4 % (3.0-13.0); NEUTROPHILS # (AUTO) 2.5 K/uL (1.8-7.7); NEUTROPHILS % (AUTO) 62.7 % (40.0-77.0); PLATELET COUNT (AUTO) 186 K/uL (130-400); RED BLOOD CELL COUNT(AUTO) 2.68 MIL/uL (4.00-5.50); RED CELL DISTRIBUTION WIDTH 18.6 % (11.0-15.5); WHITE BLOOD COUNT (AUTO) 3.9 K/uL (4.8-10.8)
[2022-12-18 20:40] LABS: POTASSIUM 3.2 mmol/L (3.5-5.1)
[2022-12-18 20:50] LABS: ALBUMIN 2.5 g/dL (3.5-5.0); BILIRUBIN,TOTAL 0.4 mg/dL (0.2-1.0); TOTAL PROTEIN, SERUM 7.8 g/dL (6.0-8.3)
[2022-12-18 20:59] LABS: INFLUENZA TYPE A Negative For Type A (NEGATIVE); INFLUENZA TYPE B Negative For Type B (NEGATIVE)
[2022-12-18 21:01] LABS: SARS-CoV-2, RNA, NAAT NEGATIVE SARS CoV-2 (NEGATIVE)
[2022-12-18] MEDS ORDERED: CEFTRIAXONE 2GM VIAL IVPB ONE (22:00)
[2022-12-18] MEDS ORDERED: ALBUTEROL 0.083% 2.5 MG/3 ML INH IH ONE (22:00)
[2022-12-18] MEDS ORDERED: GUAIFENESIN 600 MG TABLET.ER PO ONE (22:00)
[2022-12-18 22:19] VITALS: PULSE 83; RESP 16
[2022-12-18] MEDS ORDERED: ALBUHFA IH (23:22)
[2022-12-18] MEDS ORDERED: GUAI600T50 PO (23:22)
[2022-12-19 06:18] VITALS: BP 116/54; PULSE 84; RESP 20; O2SAT 97
[2022-12-20] MEDS ORDERED: NITR0.4T50 SL (21:40)
[2022-12-20] MEDS ORDERED: ASPI-1005 PO (21:40)
== END 2022-12-19 07:45 | disposition home or self-care (01) ==
LOC: EDH 19:15
DX: J40 Bronchitis, not specified as acute or chronic (principal); I48.91 Unspecified atrial fibrillation; I12.0 Hypertensive chronic kidney disease with stage 5 chronic kidney disease or end stage renal disease; E11.22 Type 2 diabetes mellitus with diabetic chronic kidney disease; N18.6 End stage renal disease; Z20.822 Contact with and (suspected) exposure to COVID-19; Z79.899 Other long term (current) drug therapy; Z86.73 Personal history of transient ischemic attack (TIA), and cerebral infarction without residual deficits; Z98.890 Other specified postprocedural states; Z88.8 Allergy status to other drugs, medicaments and biological substances; Z99.2 Dependence on renal dialysis
CPT/HCPCS: 99285; 96366; 96365; 71045; 87635; 84484; 80053; 85025; 87804 ×2; 36415; 93005; 94640; C9803; J0696

== ENCOUNTER 2022-12-20 19:12 | Emergency (ER) | payer MEDICARE ==
[~2022-12-20 19:12] MED LIST changes: +ALBUHFA IH; +GUAI600T50 PO
[2022-12-20 19:43] LABS: BASOPHILS # (AUTO) 0.02 K/uL (0.00-0.20); BASOPHILS % (AUTO) 0.4 % (0.0-5.0); HEMATOCRIT 22.5 % (36-48); IMMATURE GRANULOCYTE ABSOLUTE 0.02 K/uL (0-1); LYMPHOCYTES # (AUTO) 1.2 K/uL (1.0-4.8); LYMPHOCYTES % (AUTO) 25.3 % (21.0-51.0); MEAN CORPUSCULAR HEMOGLOBIN 28.1 pg (27.0-33.0); MEAN CORPUSCULAR HGB CONC 31.1 g/dL (32.0-36.0); MEAN CORPUSCULAR VOLUME 90.4 fL (79-99); MONOCYTES # (AUTO) 0.4 K/uL (0.1-1.0); NEUTROPHILS # (AUTO) 3.1 K/uL (1.8-7.7); NEUTROPHILS % (AUTO) 62.9 % (40.0-77.0); PLATELET COUNT (AUTO) 196 K/uL (130-400); RED BLOOD CELL COUNT(AUTO) 2.49 MIL/uL (4.00-5.50); RED CELL DISTRIBUTION WIDTH 18.5 % (11.0-15.5); WHITE BLOOD COUNT (AUTO) 4.9 K/uL (4.8-10.8)
[2022-12-20 20:10] LABS: ALBUMIN 2.5 g/dL (3.5-5.0); BILIRUBIN,TOTAL 0.3 mg/dL (0.2-1.0); CREATININE 1.6 mg/dL (0.5-1.5); TOTAL PROTEIN, SERUM 7.5 g/dL (6.0-8.3)
[2022-12-20] MEDS ORDERED: NITROGLYCERIN 0.4 MG SL TAB SL PRN (20:30)
[2022-12-20] MEDS ORDERED: ASPIRIN 325MG TAB PO ONE (20:30)
[2022-12-20] MEDS ORDERED: ASPI-1005 PO (21:40)
[2022-12-20] MEDS ORDERED: NITR0.4T50 SL (21:40)
[2022-12-20 23:10] VITALS: PULSE 84
[2022-12-21 01:00] VITALS: BP 133/74; RESP 18; O2SAT 93
== END 2022-12-21 01:52 | disposition home or self-care (01) ==
LOC: EDH 19:12
DX: I20.8 Other forms of angina pectoris (principal); E11.22 Type 2 diabetes mellitus with diabetic chronic kidney disease; I12.0 Hypertensive chronic kidney disease with stage 5 chronic kidney disease or end stage renal disease; N18.6 End stage renal disease; D64.9 Anemia, unspecified; I48.91 Unspecified atrial fibrillation; Z99.2 Dependence on renal dialysis; Z88.8 Allergy status to other drugs, medicaments and biological substances; Z79.4 Long term (current) use of insulin; Z79.899 Other long term (current) drug therapy
CPT/HCPCS: 36415; 71045; 80053; 84484; 85025; 93005

== ENCOUNTER 2023-06-19 06:08 | Observation (INO) | payer MEDICARE ==
[2023-06-15 14:03] VITALS: BP 90/43; PULSE 73; RESP 18
[2023-06-15 14:11] LABS: BASOPHILS # (AUTO) 0.03 K/uL (0.00-0.20); EOSINOPHILS # (AUTO) 0.15 K/uL (0.00-0.70); EOSINOPHILS % (AUTO) 5.1 % (0.0-8.0); HEMATOCRIT 27.2 % (36-48); IMMATURE GRANULOCYTE ABSOLUTE 0.01 K/uL (0-1); LYMPHOCYTES # (AUTO) 0.9 K/uL (1.0-4.8); LYMPHOCYTES % (AUTO) 31.4 % (21.0-51.0); MEAN CORPUSCULAR HEMOGLOBIN 29.5 pg (27.0-33.0); MEAN CORPUSCULAR HGB CONC 29.8 g/dL (32.0-36.0); MEAN CORPUSCULAR VOLUME 98.9 fL (79-99); MONOCYTES # (AUTO) 0.3 K/uL (0.1-1.0); MONOCYTES % (AUTO) 9.8 % (3.0-13.0); NEUTROPHILS # (AUTO) 1.6 K/uL (1.8-7.7); NEUTROPHILS % (AUTO) 52.4 % (40.0-77.0); PLATELET COUNT (AUTO) 150 K/uL (130-400); RED BLOOD CELL COUNT(AUTO) 2.75 MIL/uL (4.00-5.50); RED CELL DISTRIBUTION WIDTH 16.9 % (11.0-15.5)
[2023-06-15 14:29] LABS: CREATININE 3.1 mg/dL (0.5-1.5); POTASSIUM 3.2 mmol/L (3.5-5.1)
[2023-06-15 14:30] LABS: INR 1.13 (0.85-1.15)
[2023-06-15 14:32] LABS: PARTIAL THROMBOPLASTIN TIME 45.6 SEC (26.3-35.5)
[2023-06-15 14:45] LABS: BASOPHILS % (MANUAL) 2 % (0-2); EOSINOPHILS % (MANUAL) 6 % (1-6); LYMPHOCYTES % (MANUAL) 29 % (22-44); MAN.DIFF COMMENT-IMPRESSION MANUAL DIFFERENTIAL; MONOCYTES % (MANUAL) 5 % (2-9); PLATELET MORPHOLOGY COMMENT ADEQUATE; SEGMENTED NEUTROPHILS % 58 % (40-70); TOTAL CELLS COUNTED 100
[~2023-06-19] VITALS: Ht 124.5 cm; Wt 48.5 kg
[2023-06-19] VITALS (25 sets, daily range): BP systolic 73–112; BP diastolic 30–48; PULSE 58–69; RESP 16–18; O2SAT 97–100
[~2023-06-19 06:08] MED LIST changes: -ALBUHFA IH; -ATOR20TA65 PO; -CALC667T8 PO; -FOLI0.8T22 PO; -GUAI600T50 PO; +LEVE250T PO; -LEVO50CA4 PO
[2023-06-19 07:15] LABS: CREATININE 2.2 mg/dL (0.5-1.5); POTASSIUM 3.5 mmol/L (3.5-5.1)
[2023-06-19 07:17] LABS: BASOPHILS # (AUTO) 0.02 K/uL (0.00-0.20); BASOPHILS % (AUTO) 0.6 % (0.0-5.0); EOSINOPHILS % (AUTO) 3.2 % (0.0-8.0); HEMATOCRIT 26.8 % (36-48); IMMATURE GRANULOCYTE ABSOLUTE 0.01 K/uL (0-1); LYMPHOCYTES # (AUTO) 1.1 K/uL (1.0-4.8); LYMPHOCYTES % (AUTO) 33.4 % (21.0-51.0); MEAN CORPUSCULAR HEMOGLOBIN 30.1 pg (27.0-33.0); MEAN CORPUSCULAR HGB CONC 30.6 g/dL (32.0-36.0); MEAN CORPUSCULAR VOLUME 98.5 fL (79-99); MONOCYTES # (AUTO) 0.3 K/uL (0.1-1.0); MONOCYTES % (AUTO) 9.6 % (3.0-13.0); NEUTROPHILS # (AUTO) 1.7 K/uL (1.8-7.7); NEUTROPHILS % (AUTO) 52.9 % (40.0-77.0); PLATELET COUNT (AUTO) 166 K/uL (130-400); RED BLOOD CELL COUNT(AUTO) 2.72 MIL/uL (4.00-5.50); RED CELL DISTRIBUTION WIDTH 17.5 % (11.0-15.5); WHITE BLOOD COUNT (AUTO) 3.1 K/uL (4.8-10.8)
[2023-06-19] MEDS ORDERED: MEPERIDINE-PF 25 MG/ML SYG ONE ×2 (07:22→08:46)
[2023-06-19] MEDS ORDERED: LIDOCAINE HCL 1% MDV 50ML VIAL ONE (07:22)
[2023-06-19] MEDS ORDERED: BUPIVACAINE/PF 0.25% 30ML VIAL IJ ONE (07:23)
[2023-06-19] MEDS ORDERED: IOHEXOL-350 50ML VIAL IV ONE (07:23)
[2023-06-19] MEDS ORDERED: CEFAZOLIN SODIUM 1 GM VIAL ONE (07:23)
[2023-06-19] MEDS ORDERED: MIDAZOLAM HCL 1 MG/ML 2ML VIAL ONE ×2 (07:23→09:48)
[2023-06-19] MEDS ORDERED: THROMBIN-JMI 5000 UNIT/VIAL TP ONE (08:50)
[2023-06-19] MEDS ORDERED: VANCOMYCIN 1G/250ML KIT 500 ML IV ONE (08:54)
[2023-06-19] MEDS ORDERED: BACITRACIN 1 EACH PACKET TP ONE (09:34)
[2023-06-19] MEDS ORDERED: ACETAMINOPHEN WITH CODEINE 1 TAB TAB PO PRN (10:00)
[2023-06-19] MEDS ORDERED: TRAM50TA4 PO (10:05)
[2023-06-19] MEDS: [UNRECOGNIZED DRUG - OTHER] IJ ONE (10:26)
[2023-06-19] MEDS: DESMOPRESSIN IJ ONE (10:26)
[2023-06-19 13:02] LABS: ABG BASE EXCESS 1.2 mmol/L (-2.0-3.0); ABG HCO3 27.9 mmol/L (21.0-28.0); ABG PCO2 52 mmHg (32-45); ABG PH 7.346 (7.35-7.450); PO2, ARTERIAL BG 166.3 mmHg (83.0-108.0); VENT MODE, BG NC (ROOM AIR)
[2023-06-19] MEDS ORDERED: INSULIN DEGLUDEC SQ SCH (13:30)
[2023-06-19] MEDS ORDERED: ACETAMINOPHEN 325 MG TAB PO PRN (13:30)
[2023-06-19] MEDS ORDERED: DEXTROSE 50%-WATER 50 ML DISP.SYRIN IV PRN (13:45)
[2023-06-19] MEDS: Ursodiol 250 MG PO SCH (14:00)
[2023-06-19] MEDS: INSULIN HUMULIN R 100 UNIT/ML 3ML SQ SCH (16:00)
[2023-06-19] MEDS ORDERED: GLUCAGON 1MG KIT 1 MG ML IM PRN (16:00)
[2023-06-19] MEDS: LEVETIRACETAM 250 MG TABLET PO SCH (22:56)
[2023-06-19] MEDS: CILOSTAZOL 100 MG TAB PO SCH (22:56)
[2023-06-19] MEDS: ATORVASTATIN 20 MG TABLET PO SCH (22:56)
[2023-06-20 00:55] VITALS: BP 111/53; PULSE 68; RESP 20
[2023-06-20 05:15] VITALS: BP 104/52; PULSE 82; RESP 17
[2023-06-20] MEDS: LEVOTHYROXINE 75 MCG TABLET PO SCH (06:43)
[2023-06-20 08:00] VITALS: O2SAT 100
[2023-06-20 08:33] VITALS: BP 116/55; PULSE 90; RESP 16
[2023-06-20] MEDS: Vitamin B Complex/Vit C/Folic Acid PO SCH (10:19)
[2023-06-20] MEDS: ACETAMINOPHEN 500 MG TABLET PO PRN (10:19)
[2023-06-20] MEDS: DULOXETINE HCL 30 MG CAP PO SCH (10:19)
[2023-06-20] MEDS: PANTOPRAZOLE 40 MG TAB DR PO SCH (10:20)
[2023-06-20 12:00] VITALS: BP 127/63; PULSE 92; RESP 16
[2023-06-20] MEDS ORDERED: INSULIN HUMULIN R 100 UNIT/ML 3ML SQ SCH (16:30)
== END 2023-06-20 13:20 | disposition home or self-care (01) ==
LOC: DAH 06:08 → DAHIP 06:09 → DAH 06:09 → 2DH 14:17
PROVIDERS: ADMIT Internal Medicine Cardiovascular Disease; ATTEND Internal Medicine Cardiovascular Disease
DX: Z45.010 Encounter for checking and testing of cardiac pacemaker pulse generator [battery] (principal); I13.2 Hypertensive heart and chronic kidney disease with heart failure and with stage 5 chronic kidney disease, or end stage renal disease; E11.22 Type 2 diabetes mellitus with diabetic chronic kidney disease; N18.6 End stage renal disease; I50.22 Chronic systolic (congestive) heart failure; I25.10 Atherosclerotic heart disease of native coronary artery without angina pectoris; I48.0 Paroxysmal atrial fibrillation; Z99.2 Dependence on renal dialysis
CPT/HCPCS: 80048 ×2; 85025 ×2; 85610; 85730; 36415 ×2; 93005; 33223; 33264; 82803; 82948 ×9; 36600; C1882; G0378 ×24; J0690; J0665; J2597; J2250 ×2; J3370; J3490 ×2; J2175 ×2; A4615; A4215; A4223 ×3; A4222; A4221; A4663; A4216; A4606; 17999; 99156; 99157; Q9967